=== PATIENT | male | born 1945 | race Caucasian/White ===

== ENCOUNTER 2021-05-20 15:55 | Inpatient (IN) | payer OTHER, SELFPAY ==
--- NOTE | ~2021-05-20 | MR_ITS ---
MRI OF THE BRAIN WITHOUT IV CONTRAST INDICATION: Right parietal infarcts. COMPARISON: CTA head and neck 05/20/2021. TECHNIQUE: Multiplanar multisequence MR imaging of the brain was obtained without IV contrast. FINDINGS: There are multiple small acute embolic infarcts within the right cerebellum, the occipital lobes bilaterally, the parietal lobes bilaterally, and the right greater than left frontal lobe. There is no significant mass effect and there is no hemorrhagic transformation. There is background chronic microangiopathy. There is no hydrocephalus, extra-axial surface collection, or herniation. The major flow voids at the skull base are preserved. The midline structures are normal. The cerebellar tonsils are normally positioned. The cerebellum and brainstem are normal. The craniocervical junction is normal. Osseous marrow signal intensity is homogenous. The visualized soft tissues are unremarkable. MR/MR head/brain wo con IMPRESSION: There are multiple small acute embolic infarcts within the right cerebellum, the occipital lobes bilaterally, the parietal lobes bilaterally, and the right greater than left frontal lobe. There is no significant mass effect and there is no hemorrhagic transformation.
--- NOTE | ~2021-05-20 | CT_ITS ---
CT ANGIOGRAM NECK WITH CONTRAST CT ANGIOGRAM BRAIN WITH CONTRAST CLINICAL INFORMATION: Left arm tingling. COMPARISON: Neck CT 06/13/2020. TECHNIQUE: Test bolus sequences followed by intravenous administration 70 mL of Omnipaque 350. Helical imaging was performed in the axial plane from the thoracic inlet to the skull vertex. Delayed postcontrast imaging of the head was also performed. The data was processed at the wood technologist workstation for generation of MIP sequences. Angled MIPs and volume rendered reformatted images were also generated at an offline 3D workstation under concurrent supervision. Stenoses are assessed in accordance with NASCET criteria unless otherwise indicated. This CT examination was performed using dose optimization techniques as appropriate, variously including the following: *Automated exposure control *Adjustment of mA and/or kV according to patient size (this includes techniques or standardized protocols for targeted exams where dose is matched to indication/reason for exam; i.e. extremities or head) *Use of iterative reconstruction technique FINDINGS: BRAIN: There is moderate chronic microangiopathy. [There is a possible small acute to subacute infarct involving the right superior parietal lobule partially inclusive of the right postcentral gyrus best seen on image 23 of series 16 that would map to the left upper extremity sensory strip. There is an additional possible small infarct more inferiorly within the inferior right parietal lobe more posteriorly on image 28 of series 16. MRI would be more sensitive in evaluation. There is no intracranial hemorrhage, hydrocephalus, extra-axial surface collection, midline shift, or other herniation pattern. The basilar cisterns are preserved. No significant soft tissue abnormality. No acute osseous abnormality. The paranasal sinuses and the mastoid air cells are well aerated.] CERVICAL SOFT TISSUES AND LUNG APICES: There is multilevel cervical spondylosis. Imaged upper lungs are clear. NECK CTA: [There is a classic 3 vessel configuration of the aortic arch. Proximal arch vessels are non-stenotic. Left vertebral artery is dominant. No significant ostial stenosis is visualized on either side. Both vertebral arteries are widely patent throughout their extracranial cervical course. 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 No focal flow-limiting stenosis nor discrete proximal large artery occlusion. No aneurysm. Timing of the contrast bolus allows assessment of the major dural venous sinuses, which all opacify normally] CT/CT angio head neck IMPRESSION: - There is a possible small acute to subacute infarct involving the right superior parietal lobule partially inclusive of the right postcentral gyrus best seen on image 23 of series 16 that would map to the left upper extremity sensory strip. There is an additional possible small infarct more inferiorly within the inferior right parietal lobe more posteriorly on image 28 of series 16. MRI would be more sensitive in evaluation. - There is moderate chronic microangiopathy. - No acute arterial occlusions and no significant arterial stenoses within the head or neck. 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 Findings discussed with Franca MOORE at 6:57 PM on 05/20/2021.
--- NOTE | 2021-05-20 16:08 | ECG_ITS ---
Test Reason : WEANESS /TINGLE L ARM Blood Pressure : / mmHG Vent. Rate : 067 BPM Atrial Rate : 067 BPM P-R Int : 174 ms QRS Dur : 096 ms QT Int : 392 ms P-R-T Axes : 029 -01 020 degrees QTc Int : 414 ms Normal sinus rhythm Normal ECG No previous ECGs available Referred By: Franca Zambrano Electronically Signed By:LILY PULLIAM
--- NOTE | 2021-05-20 16:10 | ED.NEUROSD ---
HPI - Neuro Symptoms/Deficit General Chief Complaint: General Medical Stated Complaint: L ARM NUMB/TINGLINGLING,H/O RADIATION FOR CA Time Seen by Provider: 05/20/21 16:08 Source: patient and EMS Mode of arrival: EMS Limitations: no limitations History of Present Illness HPI Narrative: 76-year-old male presents via EMS for numbness and tingling down the left arm that started at 10:30 this morning. He reports history of throat cancer and lymphedema. Onset (ago): hour(s) (6 hours ago) Time: 16:00 Last Observed Normal: 10:30 Location: left face and left arm History of same: No Severity: mild Quality: numb and tingling Relieving factors: none Exacerbating factors: none Context: sudden onset On Anticoagulants: No Associated symptoms: denies other symptoms Treatments Prior to Arrival: none Related Data Home Medications Medication Instructions Recorded Confirmed atorvastatin 10 mg tablet 10 mg PO DAILY 05/20/21 05/20/21 fluticasone propionate 50 2 spray INTRANASAL DAILY 05/20/21 05/20/21 mcg/actuation nasal spray,suspension tamsulosin 0.4 mg capsule 0.4 mg PO BEDTIME 05/20/21 05/20/21 Allergies Allergy/AdvReac Type Severity Reaction Status Date / Time No Known Allergies Allergy Unverified 11/10/19 14:34 Review of Systems Review of Systems: Constitutional: No Fever, No Chills ENT/Mouth: No Ear Pain, No Hoarseness, No sore throat Eyes: No Eye Pain, No Swelling, No Redness, No Foreign Body Cardiovascular: No Chest Pain, No SOB Respiratory: No Cough, No Dyspnea Gastrointestinal: No Nausea, No Vomiting, No Diarrhea, No abdominal Pain Genitourinary: No Dysuria, No Hematuria Musculoskeletal: No joint pain, No Myalgias, No Joint Swelling Skin: No Skin lacerations, No rash Neuro: No Weakness, positive left facial and arm Numbness, positive left facial and arm Paresthesias, No Loss of Consciousness, No Dizziness, No Headache Psych: No Anxiety/Panic, No Depression Heme/Lymph: no easy bruising, no Lymphadenopathy Endocrine: No Polyuria, No Polydipsia Yes all other systems are reviewed and are negative [facility] [place] Past Medical History Attestation statement: The following information was validated with the patient. Source: old records reviewed Social History Social History Alcohol intake: current Alcohol intake frequency: other Alcohol type: beer and wine Patient Tobacco Use Status: Former Tobacco user Smoked in Last 30 Days: No Use of substances other than those prescribed or required for medical reasons: No Any prior treatment program specific to substance use: No Advance Directives: No Advance Directives Information Provided: No Physical Exam Vital Signs: Vital Signs: Last Vital Signs Temp 98.6 F 05/20/21 19:07 Pulse 80 05/20/21 19:07 Resp 16 05/20/21 19:07 BP 176/99 H 05/20/21 19:07 Pulse Ox 97 05/20/21 19:07 BMI result Body Mass Index 24.0 Appearance: Alert. Oriented X3. No acute distress. Anxious. Eyes: Pupils equal, round and reactive to light. ENT: Pharynx normal. Neck: Normal inspection. Neck supple. CVS: Normal heart rate and rhythm. Pulses normal. Respiratory: No respiratory distress. Breath sounds normal. Abdomen: Soft and nontender. Skin: Skin warm and dry. Normal skin color. Normal skin turgor. Extremities: No lower extremity edema. Moves all extremities against resistance. Neuro: No motor deficit. No sensory deficit. Cranial nerves 2-12 intact. Course Course Course Narrative: 76-year-old male presents with chronic left-sided facial numbness and new onset of left arm numbness that started about 10 30 this morning. States that he had surgery for throat cancer and has had lymphedema since September 2020. The facial numbness the left side has been present since the lymphedema. At this time he does not report any other symptoms other than dizziness and the paresthesia and numbness to the left side of his face and arm. Will order CTA of head and neck. Patient is outside the tPA window. NIH Stroke Scale completed while patient was on the EMS stretcher. Patient does take aspirin 81 mg every morning. 1600 p.m. initial assessment NIH stroke scale 0. Last known well 10:30. 1647 EKG normal sinus. No ST depression or elevations. Vital signs are stable and within normal limits. 17:27 CBC within normal limits. Chemistries indicate elevated BUN at 21. Troponin negative. Will start resuscitating with fluid for elevated BUN. 18:56 discussion with Radiology regarding CTA results. Positive for infarct. No occlusion. MRI ordered at this time 19:43 discussion with hospitalist. Plan of care is to admit for infarct. Will call out to Neurology for consult. 19:[address] Bryan. Plan of care is aspirin 81 and admission. 21:38 MRI results discussed with hospitalist. Consultations Consultation #1: faustino Time: 19:43 Consultation #2: Irvin Time: 19:51 MDM - Neuro Symptoms/Deficit Differential Diagnosis Differential diagnosis: Likely subarachnoid hemorrhage, peripheral neuropathy, cerebrovascular accident and transient cerebral ischemia Medical Records Attestation: I reviewed the patient's medical records. Lab Data Attestation: I reviewed the patient's lab results. Result diagrams: 05/20/21 16:44 05/20/21 16:44 Labs: Lab Results 05/20/21 05/20/21 05/20/21 Range/Units 16:44 16:44 16:44 WBC 4.8 (4.8-10.8) X10*3/uL RBC 5.01 (4.60-5.80) X10*6/uL Hgb 14.7 (14.0-18.0) g/dl Hct 44.6 (42.0-52.0) % MCV 89.0 (80.0-98.0) fL MCH 29.3 (27.0-33.0) pg MCHC 33.0 (31.0-36.0) g/dl RDW 13.7 (11.0-16.0) % Plt Count 187 (160-400) X10*3/uL MPV 8.9 L (9.4-12.4) fL Immature Gran % (Auto) 0.2 (0.0-0.4) % Neut % (Auto) 76.4 H (45-73) % Lymph % (Auto) 14.7 L (20-40) % [place] % (Auto) 8.1 (2-11) % Eos % (Auto) 0.4 (0-4) % Baso % (Auto) 0.2 (0-2) % Lymph # (Auto) 0.7 L (1.2-4.9) X10*3/uL [place] # (Auto) 0.4 (0.1-1.2) X10*3/uL Eos # (Auto) 0.0 (0.0-0.4) X10*3/uL Baso # (Auto) 0.0 (0.0-0.2) X10*3/uL Abs Immat Gran (auto) 0.01 (0.00-0.03) X10*3/uL Absolute Neuts (auto) 3.7 (2.0-8.3) x10*3/uL Absolute Nucleated RBC 0.000 (0.0-0.012) X10*3/uL Nucleated RBC % (auto) 0.0 (0.0-0.2) /100WBC PT 11.8 (9.9-13.0) SEC INR 1.0 (0.9-1.1) APTT 29.8 (24.1-38.0) SEC Sodium 141 (135-145) mmol/L Potassium 4.0 (3.3-5.1) mmol/L Chloride 105 (96-108) mmol/L Carbon Dioxide 30 H (22-29) mmol/L Anion Gap 10 L (12-20) BUN 21 H (9-16) mg/dL Creatinine 0.77 (0.5-1.4) mg/dL Estim Creat Clear Calc 81.4 Estimated GFR > 60 Random Glucose 104 (60-115) mg/dL Lactic Acid (0.5-2.0) mmol/L Calcium 9.6 (8.4-10.2) mg/dL Magnesium 2.2 (1.6-2.6) mg/dL Total Bilirubin 0.6 (0.0-1.0) mg/dL Direct Bilirubin 0.3 (0.0-0.5) mg/dL AST 18 (5-37) U/L ALT 18 (0-40) U/L Alkaline Phosphatase 63 (39-117) U/L Troponin I High Sens (<3.5-35.0) ng/L Total Protein 6.4 L (6.5-8.0) g/dL Albumin 4.4 (3.5-5.0) g/dL Lipase 28 (8-78) U/L Urine Color Urine Appearance Urine pH (5.0-8.0) Ur Specific [place] (1.005-1.025) Urine Protein (NEG-TRACE) MG/DL Urine Glucose (UA) (NEG) MG/DL Urine Ketones (NEG) MG/DL Urine Blood (NEG) Urine Nitrite (NEG) Ur Leukocyte Esterase (NEG) 05/20/21 05/20/21 05/20/21 Range/Units 16:44 16:44 19:19 WBC (4.8-10.8) X10*3/uL RBC (4.60-5.80) X10*6/uL Hgb (14.0-18.0) g/dl Hct (42.0-52.0) % MCV (80.0-98.0) fL MCH (27.0-33.0) pg MCHC (31.0-36.0) g/dl RDW (11.0-16.0) % Plt Count (160-400) X10*3/uL MPV (9.4-12.4) fL Immature Gran % (Auto) (0.0-0.4) % Neut % (Auto) (45-73) % Lymph % (Auto) (20-40) % [place] % (Auto) (2-11) % Eos % (Auto) (0-4) % Baso % (Auto) (0-2) % Lymph # (Auto) (1.2-4.9) X10*3/uL [place] # (Auto) (0.1-1.2) X10*3/uL Eos # (Auto) (0.0-0.4) X10*3/uL Baso # (Auto) (0.0-0.2) X10*3/uL Abs Immat Gran (auto) (0.00-0.03) X10*3/uL Absolute Neuts (auto) (2.0-8.3) x10*3/uL Absolute Nucleated RBC (0.0-0.012) X10*3/uL Nucleated RBC % (auto) (0.0-0.2) /100WBC PT (9.9-13.0) SEC INR (0.9-1.1) APTT (24.1-38.0) SEC Sodium (135-145) mmol/L Potassium (3.3-5.1) mmol/L Chloride (96-108) mmol/L Carbon Dioxide (22-29) mmol/L Anion Gap (12-20) BUN (9-16) mg/dL Creatinine (0.5-1.4) mg/dL Estim Creat Clear Calc Estimated GFR Random Glucose (60-115) mg/dL Lactic Acid 1.0 (0.5-2.0) mmol/L Calcium (8.4-10.2) mg/dL Magnesium (1.6-2.6) mg/dL Total Bilirubin (0.0-1.0) mg/dL Direct Bilirubin (0.0-0.5) mg/dL AST (5-37) U/L ALT (0-40) U/L Alkaline Phosphatase (39-117) U/L Troponin I High Sens < 3.5 (<3.5-35.0) ng/L Total Protein (6.5-8.0) g/dL Albumin (3.5-5.0) g/dL Lipase (8-78) U/L Urine Color YELLOW Urine Appearance CLEAR Urine pH 6.0 (5.0-8.0) Ur Specific [place] 1.010 (1.005-1.025) Urine Protein NEG (NEG-TRACE) MG/DL Urine Glucose (UA) NEG (NEG) MG/DL Urine Ketones NEG (NEG) MG/DL Urine Blood NEG (NEG) Urine Nitrite NEG (NEG) Ur Leukocyte Esterase NEG (NEG) Imaging Data CTA head neck: Attestation: I personally reviewed and interpreted this imaging study as follows: Radiologist's impression: CT ANGIOGRAM NECK WITH CONTRAST CT ANGIOGRAM BRAIN WITH CONTRAST CLINICAL INFORMATION: Left arm tingling.? COMPARISON: Neck CT 06/13/2020. TECHNIQUE: Test bolus sequences followed by intravenous administration 70 mL of Omnipaque 350. Helical imaging was performed in the axial plane from the thoracic inlet to the skull vertex. Delayed postcontrast imaging of the head was also performed. The data was processed at the radiology technologist workstation for generation of MIP sequences. Angled MIPs and volume rendered reformatted images were also generated at an offline 3D workstation under concurrent supervision. Stenoses are assessed in accordance with NASCET criteria unless otherwise indicated. This CT examination was performed using dose optimization techniques as appropriate, variously including the following: *Automated exposure control *Adjustment of mA and/or kV according to patient size (this includes techniques or standardized protocols for targeted exams where dose is matched to indication/reason for exam; i.e. extremities or head) *Use of iterative reconstruction technique FINDINGS: BRAIN: There is moderate chronic microangiopathy. [There is a possible small acute to subacute infarct involving the right superior parietal lobule partially inclusive of the right postcentral gyrus best seen on image 23 of series 16 that would map to the left upper extremity sensory strip. There is an additional possible small infarct more inferiorly within the inferior right parietal lobe more posteriorly on image 28 of series 16. MRI would be more sensitive in evaluation. There is no intracranial hemorrhage, hydrocephalus, extra-axial surface collection, midline shift, or other herniation pattern. The basilar cisterns are preserved. No significant soft tissue abnormality. No acute osseous abnormality. The paranasal sinuses and the mastoid air cells are well aerated.] CERVICAL SOFT TISSUES AND LUNG APICES: There is multilevel cervical spondylosis. Imaged upper lungs are clear. NECK CTA: [There is a classic 3 vessel configuration of the aortic arch. Proximal arch vessels are non-stenotic. Left vertebral artery is dominant. No significant ostial stenosis is visualized on either side. Both vertebral arteries are widely patent throughout their extracranial cervical course. 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 No focal flow-limiting stenosis nor discrete proximal large artery occlusion. No aneurysm. Timing of the contrast bolus allows assessment of the major dural venous sinuses, which all opacify normally] CT/CT angio head neck IMPRESSION: - There is a possible small acute to subacute infarct involving the right superior parietal lobule partially inclusive of the right postcentral gyrus best seen on image 23 of series 16 that would map to the left upper extremity sensory strip. There is an additional possible small infarct more inferiorly within the inferior right parietal lobe more posteriorly on image 28 of series 16. MRI would be more sensitive in evaluation. ? - There is moderate chronic microangiopathy. ? - No acute arterial occlusions and no significant arterial stenoses within the head or neck. 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 ? Findings discussed with Franca MOORE at 6:57 PM on 05/20/2021. MRI - head: Attestation: I personally reviewed and interpreted this imaging study as follows: Radiologist's impression: MRI OF THE BRAIN WITHOUT IV CONTRAST INDICATION: Right parietal infarcts. COMPARISON: CTA head and neck 05/20/2021. TECHNIQUE: Multiplanar multisequence MR imaging of the brain was obtained without IV contrast. FINDINGS: There are multiple small acute embolic infarcts within the right cerebellum, the occipital lobes bilaterally, the parietal lobes bilaterally, and the right greater than left frontal lobe. There is no significant mass effect and there is no hemorrhagic transformation. There is background chronic microangiopathy. There is no hydrocephalus, extra-axial surface collection, or herniation. The major flow voids at the skull base are preserved. The midline structures are normal. The cerebellar tonsils are normally positioned. The cerebellum and brainstem are normal. The craniocervical junction is normal. Osseous marrow signal intensity is homogenous. The visualized soft tissues are unremarkable. MR/MR head/brain wo con IMPRESSION: There are multiple small acute embolic infarcts within the right cerebellum, the occipital lobes bilaterally, the parietal lobes bilaterally, and the right greater than left frontal lobe. There is no significant mass effect and there is no hemorrhagic transformation. ECG Data Attestation: I personally reviewed and interpreted this ECG as follows: ECG interpretation date: 05/20/21 ECG interpretation time: 16:47 Prior ECG tracings: not available for review Interpretation: Vent. rate 67 BPM CO interval 174 ms QRS duration 96 ms QT/QTc 392/414 ms P-R-T axes 29 -1 20 Normal sinus rhythm Normal ECG No previous ECGs available NIH Stroke Scale Internal: Initial- Upon Arrival Time: 16:00 Level of Consciousness: Alert Level of Consciousness Questions: Answers both questions correctly Level of Consciousness Commands: Performs both tasks correctly Best Gaze: Normal Visual: No visual loss Facial Palsy: Normal Motor Arm (Right): No drift Motor Arm (Left): No drift Motor Leg (Right): No drift Motor Leg (Left): No drift Limb Ataxia: Absent Sensory: Normal Best Language: No aphasia Dysarthia: Normal Extinction and Inattention: No abnormality Score: 0 Discharge Plan 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
[2021-05-20 16:23] VITALS: BP 126/76; PULSE 72; RESP 18; TEMP 36.4; O2SAT 95
[2021-05-20 16:37] VITALS: BP 156/90; PULSE 80; O2SAT 97; BMI 24.0
[2021-05-20 16:49] LABS: MANUAL DIFF FLAG NO
[2021-05-20 16:57] LABS: Basophils Percent Auto 0.2 % (0-2); Eosinophils Percent Auto 0.4 % (0-4); Hematocrit 44.6 % (42.0-52.0); Hemoglobin 14.7 g/dl (14.0-18.0); Imm Gran Abs Auto 0.01 X10*3/uL (0.00-0.03); Imm Gran Pct Auto 0.2 % (0.0-0.4); Lymphocytes Absolute Auto 0.7 X10*3/uL (1.2-4.9); Lymphocytes Percent Auto 14.7 % (20-40); Mean Corpuscular Hemoglobin 29.3 pg (27.0-33.0); Mean Platelet Volume 8.9 fL (9.4-12.4); Monocytes Absolute Auto 0.4 X10*3/uL (0.1-1.2); Monocytes Percent Auto 8.1 % (2-11); Neutrophils Absolute Auto 3.7 x10*3/uL (2.0-8.3); Neutrophils Percent Auto 76.4 % (45-73); Platelet Count 187 X10*3/uL (160-400); Red Blood Count 5.01 X10*6/uL (4.60-5.80); Red Cell Distribution Width 13.7 % (11.0-16.0); White Blood Count 4.8 X10*3/uL (4.8-10.8)
[2021-05-20 17:04] LABS: Prothrombin Time 11.8 SEC (9.9-13.0)
[2021-05-20 17:07] LABS: Partial Thromboplastin Time 29.8 SEC (24.1-38.0)
[2021-05-20 17:13] LABS: Alanine Aminotransferase 18 U/L (0-40); Albumin Level 4.4 g/dL (3.5-5.0); Alkaline Phosphatase 63 U/L (39-117); Anion Gap 10 (12-20); Aspartate Amino Transferase 18 U/L (5-37); Bilirubin Direct 0.3 mg/dL (0.0-0.5); Bilirubin Total 0.6 mg/dL (0.0-1.0); Blood Urea Nitrogen 21 mg/dL (9-16); Calcium 9.6 mg/dL (8.4-10.2); Carbon Dioxide 30 mmol/L (22-29); Chloride 105 mmol/L (96-108); Creatinine Clr Calc Pharmacy 81.4; Estimated Glomerular Filt Rate > 60; Glucose Random 104 mg/dL (60-115); Lipase 28 U/L (8-78); Magnesium 2.2 mg/dL (1.6-2.6); Sodium 141 mmol/L (135-145); Total Protein 6.4 g/dL (6.5-8.0)
[2021-05-20 17:20] LABS: Troponin-I High Sensitivity < 3.5 ng/L (<3.5-35.0)
[2021-05-20] MEDS: iohexoL 350 MG/ML 100 ML INFUS..BTL IV (18:23)
[2021-05-20] MEDS: 0.9 % Sodium Chloride 1,000 ML 999 ML IVCONT (18:32)
[2021-05-20 19:07] VITALS: BP 176/99; PULSE 80; RESP 16; TEMP 37; O2SAT 97
--- NOTE | 2021-05-20 19:13 | PC.NURSE ---
pt is alert and oriented x3 soliz. left chest numbness, upper arm elbow tingling like when your funny bone is stuck, per pt. pt finger to nose is slow.
[2021-05-20 19:24] LABS: Appearance Urine CLEAR; Color Urine YELLOW; Glucose Urine UA NEG (NEG); Leukocyte Esterase Urine NEG (NEG); Nitrite Urine NEG (NEG); Urine Blood NEG (NEG); Urine Ketones NEG (NEG); Urine Protein NEG (NEG-TRACE)
--- NOTE | 2021-05-20 20:03 | PC.NURSE ---
pt taken to mri, raz at bedside with family members giving a update on pt status. all questions answered, pt denies pain. alert oriented x3 follows commands. skin pink warm and dry.
[2021-05-20] MEDS: Aspirin 81 MG TAB.CHEW PO (20:57)
--- NOTE | 2021-05-20 21:51 | PHA.MEDREC ---
MED REC COMPLETE, NO ISSUES Pharmacy Consult ? Medication Reconciliation Pharmacy has completed the medication reconciliation.
[2021-05-20 22:15] VITALS: BP 148/85; PULSE 61; RESP 16; O2SAT 97
--- NOTE | 2021-05-20 22:22 | P.HPHOSP_ITS ---
History of Present Illness Date of Service: 05/20/21 Chief Complaint: left upper extremity numbness and tingling 76-year-old male with a past medical history of hypertension, hyperlipidemia, BPH, history of throat cancer status post surgery/radiotherapy with resultant lymphedema/lymphadenopathy; dysphagia; presented to the hospital today with a chief complaint of left arm numbness and tingling. Patient reported that this morning he noted to have mild left arm numbness and tingling, not feeling well; denies any weakness, falls. Denies any headaches, blurry visions, lightheadedness or dizziness. Also spoke to the patient's family at bedside who mentioned that patient was mentioning he was not feeling right yesterday and this morning he went to the work and where he had developed symptoms of left upper extremity numbness and tingling subsequently came home. Around 04:30 he had numbness and tingling which are prominent left upper extremity; immediately call the ambulance and came to the ER for further evaluation. At the time of my interview patient reported that he still has mild numbness in the left arm. Also mentions that he had difficulty grabbing the cup at work today. Denies any fever chills cough. Patient mentioned that he has mild lymphedema his throat and face; initially attributed his symptoms to the lymphedema. Patient also reports that he has difficulty swallowing post surgery; has been able to manage soft diet. Denies any GI symptoms. Review of all other systems is negative except mentioned above ER course: Per ER team patient noted to have slightly decreased sensation on the left upper extremity; last well-known time was 10:30 in the morning. Patient out of window for tPA. MRI brain. 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 Spoke to Dr. Bryan from Neurology who suggested to continue aspirin 81 mg. Patient had MRI brain which showed multiple embolic stroke involving cerebellum. Admitted for further management. [facility] Social History Alcohol intake: current Alcohol intake frequency: other Alcohol type: beer and wine Patient Tobacco Use Status: Former Tobacco user Smoked in Last 30 Days: No Use of substances other than those prescribed or required for medical reasons: No Any prior treatment program specific to substance use: No Advance Directives: No Advance Directives Information Provided: No Meds Allergies Allergy/AdvReac Type Severity Reaction Status Date / Time No Known Allergies Allergy Unverified 11/10/19 14:34 Active Medications: Current Medications Acetaminophen (Acetaminophen 325 Mg Tablet) 650 mg PO Q6H PRN PRN Reason: Pain, Mild (Pain Scale 1-3) Aspirin (Aspirin Enteric Coated 81 Mg Tablet.) 81 mg PO DAILY [facility] Atorvastatin Calcium (Atorvastatin Calcium 80 Mg Tablet) 80 mg PO DAILY [facility] Melatonin (Melatonin 3 Mg Tablet) 6 mg PO BEDTIME PRN PRN Reason: Insomnia Senna (Sennosides 8.6 Mg Tablet) 17.2 mg PO BEDTIME PRN PRN Reason: Constipation Sodium Chloride (0.9 % Sodium Chloride Flush 3 Ml Syringe) 3 ml IVFLUSH QSHIFT [facility] Home Medications Medication Instructions Recorded Confirmed Last Taken Type atorvastatin 10 mg tablet 10 mg PO DAILY 05/20/21 05/20/21 05/20/21 History cholecalciferol (vitamin D3) 25 25 mcg PO DAILY 05/20/21 05/20/21 Unknown History mcg (1,000 unit) tablet enalapril maleate 10 mg tablet 10 mg PO DAILY 05/20/21 05/20/21 05/20/21 History finasteride 5 mg tablet 5 mg PO DAILY 05/20/21 05/20/21 05/20/21 History fluticasone propionate 50 2 spray INTRANASAL DAILY 05/20/21 05/20/21 Unknown History mcg/actuation nasal spray,suspension polyethylene glycol 3350 17 17 g PO DAILY 05/20/21 05/20/21 05/20/21 History gram/dose oral powder (Miralax) tamsulosin 0.4 mg capsule 0.4 mg PO BEDTIME 05/20/21 05/20/21 05/19/21 History Physical Exam Vital Signs and Narrative: Vital Signs: Last Vital Signs Temp 98.6 F 05/20/21 19:07 Pulse 80 05/20/21 19:07 Resp 16 05/20/21 19:07 BP 176/99 H 05/20/21 19:07 Pulse Ox 97 05/20/21 19:07 BMI result Body Mass Index 24.0 Gen: Appears be in no acute distress HEENT: NCAT, Moist mucosa. Pulmonary: Vesicular breath sounds, fair air entry CVS: Normal S1-S2 Abdomen: BS+, Soft, Nontender Extremities: Warm well perfused Neuro: Alert and awake. oriented x3; strength 5/5 in upper and lower extremities; sensation slightly decreased on the left upper extremity - especially on the left arm and lateral side of the left chest to soft touch; Facial sensations are equal bilaterally; tongue is deviated to the left -chronic as per the patient and family; speech is clear; no pronator drift Results Labs CBC and Chem 7: 05/20/21 16:44 05/20/21 16:44 Labs: Laboratory Results - last 24 hr 05/20/21 05/20/21 05/20/21 16:44 16:44 16:44 MCV 89.0 MCH 29.3 MCHC 33.0 RDW 13.7 Plt Count 187 MPV 8.9 L Immature Gran % (Auto) 0.2 Neut % (Auto) 76.4 H Lymph % (Auto) 14.7 L Douglas % (Auto) 8.1 Eos % (Auto) 0.4 Baso % (Auto) 0.2 Lymph # (Auto) 0.7 L Douglas # (Auto) 0.4 Eos # (Auto) 0.0 Baso # (Auto) 0.0 Abs Immat Gran (auto) 0.01 Absolute Neuts (auto) 3.7 Absolute Nucleated RBC 0.000 Nucleated RBC % (auto) 0.0 PT 11.8 INR 1.0 APTT 29.8 Anion Gap 10 L Estim Creat Clear Calc 81.4 Estimated GFR > 60 Random Glucose 104 Lactic Acid Calcium 9.6 Magnesium 2.2 Total Bilirubin 0.6 Direct Bilirubin 0.3 AST 18 ALT 18 Alkaline Phosphatase 63 Total Protein 6.4 L Albumin 4.4 Lipase 28 Urine Color Urine Appearance Urine pH Ur Specific [place] Urine Protein Urine Glucose (UA) Urine Ketones Urine Blood Urine Nitrite Ur Leukocyte Esterase 05/20/21 05/20/21 16:44 19:19 MCV MCH MCHC RDW Plt Count MPV Immature Gran % (Auto) Neut % (Auto) Lymph % (Auto) Douglas % (Auto) Eos % (Auto) Baso % (Auto) Lymph # (Auto) Douglas # (Auto) Eos # (Auto) Baso # (Auto) Abs Immat Gran (auto) Absolute Neuts (auto) Absolute Nucleated RBC Nucleated RBC % (auto) PT INR APTT Anion Gap Estim Creat Clear Calc Estimated GFR Random Glucose Lactic Acid 1.0 Calcium Magnesium Total Bilirubin Direct Bilirubin AST ALT Alkaline Phosphatase Total Protein Albumin Lipase Urine Color YELLOW Urine Appearance CLEAR Urine pH 6.0 Ur Specific [place] 1.010 Urine Protein NEG Urine Glucose (UA) NEG Urine Ketones NEG Urine Blood NEG Urine Nitrite NEG Ur Leukocyte Esterase NEG Imaging Radiologist's Impressions: Impressions Head/Neck CTA 05/20/21 18:30 IMPRESSION: - There is a possible small acute to subacute infarct involving the right superior parietal lobule partially inclusive of the right postcentral gyrus best seen on image 23 of series 16 that would map to the left upper extremity sensory strip. There is an additional possible small infarct more inferiorly within the inferior right parietal lobe more posteriorly on image 28 of series 16. MRI would be more sensitive in evaluation. - There is moderate chronic microangiopathy. - No acute arterial occlusions and no significant arterial stenoses within the head or neck. 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 Findings discussed with Franca MOORE at 6:57 PM on 05/20/2021. Brain MRI 05/20/21 20:45 IMPRESSION: There are multiple small acute embolic infarcts within the right cerebellum, the occipital lobes bilaterally, the parietal lobes bilaterally, and the right greater than left frontal lobe. There is no significant mass effect and there is no hemorrhagic transformation. Assessment and Plan (1) Infarction of parietal lobe: Status: Acute Plan 76-year-old male with a past medical history of hypertension, hyperlipidemia, BPH, history of throat cancer status post surgery/radiotherapy with resultant lymphedema/lymphadenopathy; dysphagia; presented to the hospital today with a chief complaint of left arm numbness and tingling. CVA: Presented with left arm numbness and tingling. CT head/CT angio head and neck showed:small acute to subacute infarct involving the right superior parietal lobule partially inclusive of the rightpostcentral gyrus woul map tothe left upper extremity sensory strip. There is an additional small infarct more inferiorly within the inferior right parietal lobe; There is moderate chronic microangiopathy.; - No acute arterial occlusions and no significant arterial stenoses within the head or neck. 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 MRI brain showed ?multiple small acute embolic infarcts within the right cerebellum, the occipital lobes bilaterally, the parietal lobes bilaterally, and the right greater than left frontal lobe. There is no significant mass effect and there is no hemorrhagic transformation. Speech and swallow eval/PT/ OT Echo with bubble study Telemetry Cycle cardiac enzymes Neurology consult is made aware of the patient, recommended to continue aspirin 81mg. Will increase the home Lipitor to 80 mg. Hypertension: Patient's blood pressure currently on the higher side. Hold home antihypertensives for now. Permissive hypertension. History of throat cancer status post surgery/radiotherapy: Patient has baseline swallowing difficulties but able to manage soft food. Speech and swallow eval. DVT prophylaxis: SCD boots Code status: Full code. Confirmed with the patient and patient's family at bedside Quality Stroke Does the patient have a stroke diagnosis?: No VTE Prior VTE?: No VTE Risk Level:: Medical - moderate - high VTE Device Contraindication: N/A - Device Ordered VTE Drug Contraindication: Treatment Not Indicated
[2021-05-20 22:48] VITALS: BP 155/80; PULSE 79; RESP 16
[2021-05-20 23:24] LABS: Troponin-I High Sensitivity 4.9 ng/L (<3.5-35.0)
[2021-05-21 02:18] VITALS: BP 145/81; PULSE 61; RESP 16; TEMP 36.8; O2SAT 94
[2021-05-21 03:19] LABS: COVID-19 Test Negative (Negative)
[2021-05-21 06:20] VITALS: BP 146/80; PULSE 59; RESP 16; O2SAT 95
--- NOTE | 2021-05-21 07:07 | PC.NURSE ---
care assumed for this pt, lab at bedside for blood draw. pt engaging in conversation and very pleasant. aware of plan of care and denied having any questions.
--- NOTE | 2021-05-21 07:14 | PC.NURSE ---
care assumed for pt at this time. resp even and unlabored- sleeping in bed. vss. plan for admission to hospital and awaiting bed.
--- NOTE | 2021-05-21 07:20 | CA_ITS ---
Transthoracic Echocardiogram Patient (Last, First, Middle): Howie OdellTimbo Gender: Male Date of : 1945 Age: 76 Procedure Date: 05/21/2021 Procedure Type: Transthoracic Echocardiogram Location: ER Height: 172.72 cm Weight: 71.67 kg BSA: 1.85 m2 Heart Rate: bpm BP: 146 / 80 mmHg Clinical Rehabilitation Aide: GLADYS Referring MD: Donnie Lobato MD Symptoms: CVA Study Quality: Fair ECG Rhythm: Sinus Conclusions: - The left ventricular systolic function is normal. The calculated ejection fraction is 62% by biplane method. - No obvious valvular pathology seen on this study. Findings Left Ventricle Normal left ventricular cavity size. There is normal left ventricular wall thickness. The left ventricular systolic function is normal. The calculated ejection fraction is 62% by biplane method. There is no evidence of regional wall motion abnormalities. Diastolic function is normal for age. Right Ventricle Normal right ventricular cavity size and systolic function. Atria Both atria are normal in size. Aortic Valve There is a normal trileaflet aortic valve. There is no aortic valve stenosis. There is no aortic valve regurgitation. Mitral Valve The mitral valve appears normal. There is trace mitral valve regurgitation. There is no mitral valve stenosis. Pulmonic Valve The pulmonic valve was not well visualized. Tricuspid Valve Normal tricuspid valve structure. There is trace tricuspid valve regurgitation. The pulmonary artery systolic pressure is normal. Great Vessels The aortic annulus, sinuses of valsalva, and asc aorta are normal in size. Venous The inferior vena cava is normal in size and collapses greater than 50% with inspiration. Pericardium/Pleural There is no evidence of pericardial effusion. Prior Study Comparison No prior study available for comparison. Recommendations, Care & Conclusions No obvious valvular pathology seen on this study. Measurements 2D Linear Measurements IVSd: 0.94 0.6-0.9/0.6-1.0 cm LVIDd: 5.21 3.9-5.3/4.2-5.9 cm LVIDd Index: 2.82 2.4-3.2/2.2-3.1 cm/m2 LVIDs: 3.43 2.0-3.6 cm LVPWd: 0.84 0.7-1.1 cm LA Diam: 3.60 2.7-3.8/3.0-4.0 cm LAIDs Index: 1.95 1.5-2.3 cm/m2 LV Mass: 208.27 67-162/88-224 g LV Mass Index: 112.58 43-95/49-115 g/m2 LVOT Diam: 2.30 3.0+(-)1.3 cm 2D Systolic Function EF 4C: 63.60 >55% EF 2C: 64.30 >55% EF BiP: 62.10 >55% Mitral Valve MV Pk E: 0.53 MV PK A: 0.83 MV Decel Time: 181.00 E/A: 0.60 E'Lateral: 9.46 E'Medial: 5.66 E/E' Med: 9.30 E/E' Lat: 5.60 PHT: 53.00 MVA PHT: 4.15 Decel Josephine: 2.91 Aortic Valve AoV Pk Paul: 1.24 AoV Mn Paul: 0.84 AoV VTI: 0.31 AoV Pk Grad: 6.00 Aov Mn Grad: 3.00 CRYS Cont.VTI: 2.53 LVOT LVOT Pk Paul: 0.80 LVOT Mn Paul: 0.55 LVOT VTI: 0.19 LVOT Pk Grad: 3.00 LVOT Mn Grad: 1.00 LVOT Diam: 2.30 LVOT Area: 4.15 Diastolic Function MV Pk E: 0.53 MV Pk A: 0.83 E/A: 0.60 E'Medial: 5.66 E/E' Med: 9.30 E' Laterial: 9.46 E/E' Lat: 5.60 Right Ventricle TAPSE (mm): 24.40 TVS' Paul: 11.90 Tricuspid Valve TR Pk Paul: 1.82 TR Pk Grad: 13.00 RA Press: 3.00 RVSP: 16.00 Great Vessels Aorta Sinus of Valsalva: 4.05 2.0-3.[address] [place]: 3.11 1.7-3.4 cm Ao Asc: 3.80 2.1-3.4 cm Ao Arch: 2.90 Updated in Other Vendor System with Status of Final Kole Huang MD electronically signed on 05/21/2021 11:57:34 AM with status of Final
[2021-05-21 07:36] LABS: Basophils Percent Auto 0.2 % (0-2); Eosinophils Absolute Auto 0.1 X10*3/uL (0.0-0.4); Eosinophils Percent Auto 1.2 % (0-4); Hematocrit 44.9 % (42.0-52.0); Imm Gran Abs Auto 0.01 X10*3/uL (0.00-0.03); Imm Gran Pct Auto 0.2 % (0.0-0.4); Lymphocytes Absolute Auto 0.7 X10*3/uL (1.2-4.9); Lymphocytes Percent Auto 17.5 % (20-40); MANUAL DIFF FLAG NO; Mean Corpuscular HGB Conc 33.4 g/dl (31.0-36.0); Mean Corpuscular Hemoglobin 29.8 pg (27.0-33.0); Mean Corpuscular Volume 89.3 fL (80.0-98.0); Mean Platelet Volume 8.8 fL (9.4-12.4); Monocytes Absolute Auto 0.3 X10*3/uL (0.1-1.2); Neutrophils Absolute Auto 3.1 x10*3/uL (2.0-8.3); Neutrophils Percent Auto 73.9 % (45-73); Platelet Count 145 X10*3/uL (160-400); Red Blood Count 5.03 X10*6/uL (4.60-5.80); Red Cell Distribution Width 13.6 % (11.0-16.0); White Blood Count 4.2 X10*3/uL (4.8-10.8)
[2021-05-21 07:43] LABS: Prothrombin Time 11.7 SEC (9.9-13.0)
[2021-05-21 07:54] VITALS: BP 146/87; PULSE 63; RESP 10; O2SAT 96
[2021-05-21] MEDS: Aspirin Enteric Coated 81 MG TABLET.DR PO (08:03)
[2021-05-21] MEDS: Atorvastatin Calcium 80 MG TABLET PO (08:03)
[2021-05-21] MEDS: Cholecalciferol (Vitamin D3) 25 MCG TABLET PO (08:03)
[2021-05-21] MEDS: 0.9 % Sodium Chloride Flush 3 ML SYRINGE IVFLUSH ×2 (08:03→23:55)
[2021-05-21] MEDS: Finasteride 5 MG TABLET PO (08:03)
[2021-05-21 08:10] LABS: Anion Gap 9 (12-20); Blood Urea Nitrogen 13 mg/dL (9-16); Calcium 9.3 mg/dL (8.4-10.2); Carbon Dioxide 27 mmol/L (22-29); Chloride 107 mmol/L (96-108); Cholesterol 152 mg/dL; Creatinine Clr Calc Pharmacy 83.6; Estimated Glomerular Filt Rate > 60; Glucose Random 115 mg/dL (60-115); HDL Cholesterol 67 mg/dL; LDL Cholesterol Calculated 71 mg/dl; Potassium 4.3 mmol/L (3.3-5.1); Sodium 139 mmol/L (135-145); Triglycerides 70 mg/dL
--- NOTE | 2021-05-21 08:28 | PC.NURSE ---
pt/ot at bedside
--- NOTE | 2021-05-21 10:55 | P.PNIM_ITS ---
Subjective Subjective Date of Service: 05/21/21 Interval History: the patient was seen and evaluated this morning Laying in bed, feels comfortable Reports sensation has improved in his left lower extremity Denies any fever, chills or shortness of breath No reported other overnight events. Systemic review: No fever, chills or weakness but reported decreased sensation in his left shoul mary No chest pain, palpitation No shortness of breath or coughing No abdominal pain, nausea or vomiting No urinary symptoms No any rash or wounds Physical Exam Vital Signs: Vital Signs: Last Vital Signs Temp 98.3 F 05/21/21 02:18 Pulse 63 05/21/21 07:54 Resp 10 L 05/21/21 07:54 BP 146/87 H 05/21/21 07:54 Pulse Ox 96 05/21/21 07:54 BMI result Body Mass Index 24.0 Const: Other: Constitutional : Alert, oriented, not in distress Neck : Normal inspection, Supple Cardiovascular : RRR, S1 S2, no lower extremity edema Respiratory : Good bilateral air entry, no crackles, wheezes or rhonchi Gastrointestinal: soft, lax, Normal bowel sounds, Non tender Skin : Warm, Dry Neurological : Alert & oriented x3, No focal deficit, CN II-XII within normal Objective Data Active Medications Acetaminophen (Acetaminophen 325 Mg Tablet) 650 mg PO Q6H PRN PRN Reason: Pain, Mild (Pain Scale 1-3) Aspirin (Aspirin Enteric Coated 81 Mg Tablet.) 81 mg PO DAILY [facility] Last Admin: 05/21/21 08:03 Dose: 81 mg Documented by: SHAWN Atorvastatin Calcium (Atorvastatin Calcium 80 Mg Tablet) 80 mg PO DAILY [facility] Last Admin: 05/21/21 08:03 Dose: 80 mg Documented by: SHAWN Finasteride (Finasteride 5 Mg Tablet) 5 mg PO DAILY [facility] Last Admin: 05/21/21 08:03 Dose: 5 mg Documented by: SHAWN Fluticasone Propionate (Fluticasone Propionate Nasal 16 Gm [place]) 2 spray NOSTRIL-B DAILY [facility] Last Admin: 05/21/21 08:03 Dose: Not Given Documented by: SHAWN Non-Admin Reason: Med Not Available Melatonin (Melatonin 3 Mg Tablet) 6 mg PO BEDTIME PRN PRN Reason: Insomnia Polyethylene Glycol (Polyethylene Glycol 3350 17 Gm Powd.Pack) 17 gm PO DAILY [facility] Last Admin: 05/21/21 08:03 Dose: Not Given Documented by: SHAWN Non-Admin Reason: Med Not Available Senna (Sennosides 8.6 Mg Tablet) 17.2 mg PO BEDTIME PRN PRN Reason: Constipation Sodium Chloride (0.9 % Sodium Chloride Flush 3 Ml Syringe) 3 ml IVFLUSH QSHIFT [facility] Last Admin: 05/21/21 08:03 Dose: 3 ml Documented by: SHAWN Tamsulosin HCl (Tamsulosin Hcl 0.4 Mg Capsule) 0.4 mg PO BEDTIME EILEEN Vitamin D (Cholecalciferol (Vitamin D3) 25 Mcg Tablet) 25 mcg PO DAILY [facility] Last Admin: 05/21/21 08:03 Dose: 25 mcg Documented by: SHAWN Labs CBC & Chem 7: 05/21/21 07:25 05/21/21 07:25 Labs: Laboratory Results - last 24 hr 05/20/21 05/20/21 05/20/21 16:44 16:44 16:44 MCV 89.0 MCH 29.3 MCHC 33.0 RDW 13.7 Plt Count 187 MPV 8.9 L Immature Gran % (Auto) 0.2 Neut % (Auto) 76.4 H Lymph % (Auto) 14.7 L [place] % (Auto) 8.1 Eos % (Auto) 0.4 Baso % (Auto) 0.2 Lymph # (Auto) 0.7 L [place] # (Auto) 0.4 Eos # (Auto) 0.0 Baso # (Auto) 0.0 Abs Immat Gran (auto) 0.01 Absolute Neuts (auto) 3.7 Absolute Nucleated RBC 0.000 Nucleated RBC % (auto) 0.0 PT 11.8 INR 1.0 APTT 29.8 Anion Gap 10 L Estim Creat Clear Calc 81.4 Estimated GFR > 60 Random Glucose 104 Lactic Acid Calcium 9.6 Magnesium 2.2 Total Bilirubin 0.6 Direct Bilirubin 0.3 AST 18 ALT 18 Alkaline Phosphatase 63 Troponin I High Sens Total Protein 6.4 L Albumin 4.4 Triglycerides Cholesterol LDL Cholesterol, Calc HDL Cholesterol Lipase 28 Urine Color Urine Appearance Urine pH Ur Specific [place] Urine Protein Urine Glucose (UA) Urine Ketones Urine Blood Urine Nitrite Ur Leukocyte Esterase COVID-19 ([facility]) COVID-19 Clin Com 05/20/21 05/20/21 05/20/21 16:44 16:44 19:19 MCV MCH MCHC RDW Plt Count MPV Immature Gran % (Auto) Neut % (Auto) Lymph % (Auto) [place] % (Auto) Eos % (Auto) Baso % (Auto) Lymph # (Auto) [place] # (Auto) Eos # (Auto) Baso # (Auto) Abs Immat Gran (auto) Absolute Neuts (auto) Absolute Nucleated RBC Nucleated RBC % (auto) PT INR APTT Anion Gap Estim Creat Clear Calc Estimated GFR Random Glucose Lactic Acid 1.0 Calcium Magnesium Total Bilirubin Direct Bilirubin AST ALT Alkaline Phosphatase Troponin I High Sens < 3.5 Total Protein Albumin Triglycerides Cholesterol LDL Cholesterol, Calc HDL Cholesterol Lipase Urine Color YELLOW Urine Appearance CLEAR Urine pH 6.0 Ur Specific [place] 1.010 Urine Protein NEG Urine Glucose (UA) NEG Urine Ketones NEG Urine Blood NEG Urine Nitrite NEG Ur Leukocyte Esterase NEG COVID-19 ([facility]) COVID-19 [facility] Com 05/20/21 05/21/21 05/21/21 23:00 02:58 07:25 MCV 89.3 MCH 29.8 MCHC 33.4 RDW 13.6 Plt Count 145 L MPV 8.8 L Immature Gran % (Auto) 0.2 Neut % (Auto) 73.9 H Lymph % (Auto) 17.5 L [place] % (Auto) 7.0 Eos % (Auto) 1.2 Baso % (Auto) 0.2 Lymph # (Auto) 0.7 L [place] # (Auto) 0.3 Eos # (Auto) 0.1 Baso # (Auto) 0.0 Abs Immat Gran (auto) 0.01 Absolute Neuts (auto) 3.1 Absolute Nucleated RBC 0.000 Nucleated RBC % (auto) 0.0 PT INR APTT Anion Gap Estim Creat Clear Calc Estimated GFR Random Glucose Lactic Acid Calcium Magnesium Total Bilirubin Direct Bilirubin AST ALT Alkaline Phosphatase Troponin I High Sens 4.9 Total Protein Albumin Triglycerides Cholesterol LDL Cholesterol, Calc HDL Cholesterol Lipase Urine Color Urine Appearance Urine pH Ur Specific [place] Urine Protein Urine Glucose (UA) Urine Ketones Urine Blood Urine Nitrite Ur Leukocyte Esterase COVID-19 ([facility]) Negative COVID-19 [facility] Com See Note 05/21/21 05/21/21 07:25 07:25 MCV MCH MCHC RDW Plt Count MPV Immature Gran % (Auto) Neut % (Auto) Lymph % (Auto) [place] % (Auto) Eos % (Auto) Baso % (Auto) Lymph # (Auto) [place] # (Auto) Eos # (Auto) Baso # (Auto) Abs Immat Gran (auto) Absolute Neuts (auto) Absolute Nucleated RBC Nucleated RBC % (auto) PT 11.7 INR 1.0 APTT Anion Gap 9 L Estim Creat Clear Calc 83.6 Estimated GFR > 60 Random Glucose 115 Lactic Acid Calcium 9.3 Magnesium Total Bilirubin Direct Bilirubin AST ALT Alkaline Phosphatase Troponin I High Sens Total Protein Albumin Triglycerides 70 Cholesterol 152 LDL Cholesterol, Calc 71 HDL Cholesterol 67 Lipase Urine Color Urine Appearance Urine pH Ur Specific [place] Urine Protein Urine Glucose (UA) Urine Ketones Urine Blood Urine Nitrite Ur Leukocyte Esterase COVID-19 ([facility]) COVID-19 Clin Com Assessment and Plan (1) Infarction of parietal lobe: Status: Acute (2) Acute embolic stroke: Status: Acute Plan 76-year-old male with a past medical history of hypertension, hyperlipidemia, BPH, history of throat cancer status post surgery/radiotherapy with resultant lymphedema/lymphadenopathy; dysphagia; presented to the hospital today with a chief complaint of left arm numbness and tingling. # acute stroke Presented with left arm numbness and tingling. Improving Seems to be in polyps giving multifocal appearance on MRI MRI showing multiple areas including parietal lobe superior and inferior along with right cerebellum, occipital lobes bilaterally. No carotid stenosis reported by CTA To do Speech and swallow eval/PT/ OT Regular Echo was done, to check with Cardiology we need to repeat with bubble study Monitor rhythm on Telemetry Neurology consult pending Continue aspirin 81mg and increase Lipitor to 80 mg To get cardiology consult Hypertension Patient's blood pressure currently on the higher side Hold home antihypertensives for now Permissive hypertension. History of throat cancer status post surgery/radiotherapy Patient has baseline swallowing difficulties but able to manage soft food [place] diet Speech and swallow eval. DVT prophylaxis: Lovenox Quality Stroke Does the patient have a stroke diagnosis?: No VTE Prior VTE?: No VTE Risk Level:: Medical - moderate - high VTE Device Contraindication: N/A - Device Ordered VTE Drug Contraindication: Treatment Not Indicated
--- NOTE | 2021-05-21 11:52 | PC.NURSE ---
patient reports seeing black dots when focusing on up close objects. daughter at bedside, requesting update on plan of care and wether or not neurology has seen patient. hospitalist page about patient/family concerns. patient in no obvious distress other eckert, denies any additional needs
[2021-05-21] MEDS: Enoxaparin Sodium 40 MG/0.4 ML SYRINGE SUBCUT (12:21)
--- NOTE | 2021-05-21 12:53 | MHC.CM.PN ---
Met with patient, Jennie, and daughter Rafaela in regards to discharge planning. Patient lives with Jennie, ambulates independently and had no services prior to coming to the hospital. PCP verified. New HCP completed, signed and witnessed. Original given to patient. Copy placed in chart. IMM explained and signed. Patient received 3 Pfizer vaccines. Family will transport patient home when medically stable. Continue to monitor for d/c needs.
--- NOTE | 2021-05-21 13:47 | MHC.STROKE ---
Addendum entered by Sadie Thomas RN 05/21/21 16:00: I ROUNDED AGAIN AFTER DR ZEPEDA, WE DISCUSSED WHAT DR ZEPEDA TOLD HIM. I ANSWERED ALL OF HIS QUESTIONS. HE MAY NEED BRANDI, HOLTER MONITOR OR LINQ IMPLANTABLE HEART MONITOR, HE MAY ALSO BENEFIT FROM A HYPERCOAG. WORK-UP. SEE DR ZEPEDA'S NOTE. Original Note: EMS PRE-NOTIFIED AT 1541, NO STROKE ALERT, ARRIVED AT 1555. C/O LEFT ARM TINGLING SINCE EARLY AM UPON WAKING AT 0630 THEN AGAIN 1030. 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 I REVIEWED THE MRI RESULTS WITH DR ZEPEDA. HE RECOMMENDED A CARDIOLOGY CONSULT. DR INGRAM AND I MET WITH THE PATIENT, HIS AND DAUGHTER TO REVIEW THE DIAGNOSIS AND PLAN OF CARE. I REVIEWED THE STROKE EDUCATION BOOKLET, POWER POINT SLIDES, AND MRI IMAGES AND DESCRIBED WHERE THE STROKE IS AND THE CORRELATING SYMPTOMS. THEY HAD SEVERAL QUESTIONS THAT I WAS ABLE TO ANSWER. MY NIHSS = 2 FOR A PARTIAL LEFT FIELD CUT AND SOME LEFT SENSORY DEFICIT. I WILL CONTINUE TO FOLLOW.
[2021-05-21] MEDS: Apixaban 5 MG TABLET PO ×2 (14:08→21:05)
--- NOTE | 2021-05-21 14:31 | MHC.SL.SWA ---
Speech Pathologist Impression: Risk of Aspiration Due to: Neurological Condition Dysphasia Diet Status: Liquid Consistency and Strategies for Safe Swallow: Liquid Intake Recommendation: Thin Liquid Intake Strategies: Small Sips Solid Food Consistency: Dietary Recommendations: Chopped/Advanced (NDD3) Additional Modifications to Solid Foods: Add thin gravies, sauces. Oral Medication Intake: Crushed with Puree Please contact the pharmacy regarding appropriate crushable or liquid drug formulations that are available whenever modified delivery is recommended. Compensatory Strategies and Precautions to be Taken for Safe Swallow: Sitting Upright (90 deg) Double Swallow Liquids from Cup Liquids from Straw Alternate Liquids/Solids Supervision While Eating and Drinking for Safe Swallow: Intermittent Supervision Foods to Avoid: Acidic foods, temp extremes (very hot/cold), sticky textures, foods that break into pieces when chewed (e.g. brittle/crunchy foods). Swallowing Recommended Treatments: Compens. Strategy Educat. Recommendation for Speech: Inpatient Speech Therapy Comment: Pt presents w/ oral phase dysphagia, secondary to s/p surgery/radiation for throat CA. Pt is highly aware of swallowing needs and is an excellent self-advocate. On assessment today, pt had prolonged oral phase due to mastication and transit of solid bolus, w/residual after swallow cleared with sips of liquid. Pt reports this is his baseline. Pt additionally reports that he is in treatment for dysphagia with [employer] at [facility], and had recent MBSS that had no indication of aspiration on any food/liquid consistency. Recommend diet of Chopped/Advanced (NDD3) w/ THIN liquids, Pills CRUSHED in PUREE (Pt reported difficulty swallowing large pills). w/ medication administration, Pt will likely need liquid wash to help clear any residual med/puree. Additionally Pt reports that he regularly supplements meals w/nutritional shakes. Recommendations for diet consistencies sent to MD, Risk Consultant by secure text. [employer] to follow up 1-2X for toleration of recommended diet. Frequency/Duration: Date Range for Service Req: Timeline to reassess: Concert Manager Clinican/Clinical Fellow: No Supervisory Statement: I have reviewed and agree with the student/clinical fellow's documentation: N/A Speech Language Pathologist: Dari Osborn M.A., [facility]
--- NOTE | 2021-05-21 14:31 | MHC.SLORD ---
Speech Language Pathology Order Status: Initial referral entered by MD for PT was for Speech/Lang/Cog eval, however on chart review evident that BSE was intended, and BSE completed this a.m. In working w/Pt, no evidence of Speech/lang/cognitive issues.
[2021-05-21] MEDS: Tamsulosin HCL 0.4 MG CAPSULE PO ×2 (14:53→21:05)
--- NOTE | 2021-05-21 17:25 | P.CNNE_ITS ---
History of Present Illness Data of Consult Service Date: 05/21/21 Primary Care Provider: Tomas Gold MD [facility] Reason for consult: Left hand tingling, Stroke This is a 76-year-old left handed man with a past medical history of hypertension, hyperlipidemia, BPH, history of left tonsillar cancer, status post surgery/radiotherapy with resultant lymphedema /lymphadenopathyin the neck; dysphagia; presented to the hospital today with a chief complaint of left arm and hand numbness and tingling. 05/20/21 morning he noted difficulty grabbing the cup at work and impaired fine motor skills followed a couple of hrs later with mild left arm numbness and tingling, not feeling well; denies any weakness, falls.? Denies any headaches, blurry visions, lightheadedness or dizziness.?At the time of my interview patient reported that he still has mild numbness in the left shoulder and upper arm but it had cleared from the forearm and hand.? Patient mentioned that he has mild lymphedema his throat and face; initially attributed his symptoms to the lymphedema.? Patient also reports that he has difficulty swallowing post surgery; has been able to manage soft diet.?He is using a pressure devic cande his chest an dneck to reduce lymphedema. Review of Systems Review of Systems: Constitutional: No Fever, No Chills ENT/Mouth: No Ear Pain, No Hoarseness, No sore throat Eyes: No Eye Pain, No Swelling, No Redness, No Foreign Body Cardiovascular: No Chest Pain, No SOB Respiratory: No Cough, No Dyspnea Gastrointestinal: No Nausea, No Vomiting, No Diarrhea, No abdominal Pain Genitourinary: No Dysuria, No Hematuria Musculoskeletal: No joint pain, No Myalgias, No Joint Swelling Skin: No Skin lacerations, No rash Neuro: No Weakness, positive left facial and arm Numbness, positive left facial and arm Paresthesias, No Loss of Consciousness, No Dizziness, No Headache Psych: No Anxiety/Panic, No Depression Heme/Lymph: no easy bruising, no Lymphadenopathy Endocrine: No Polyuria, No Polydipsia Yes all other systems are reviewed and are negative COUNTS INCLUDE 234 BEDS AT THE [facility] Social History Social History Alcohol intake: current Alcohol intake frequency: other Alcohol type: beer and wine Patient Tobacco Use Status: Former Tobacco user service: No Current occupational status: employed Meds Allergies Allergy/AdvReac Type Severity Reaction Status Date / Time No Known Allergies Allergy Unverified 11/10/19 14:34 Active Medications: Current Medications Acetaminophen (Acetaminophen 325 Mg Tablet) 650 mg PO Q6H PRN PRN Reason: Pain, Mild (Pain Scale 1-3) Apixaban (Apixaban 5 Mg Tablet) 5 mg PO BID [facility] Last Admin: 05/21/21 14:08 Dose: 5 mg Documented by: Atorvastatin Calcium (Atorvastatin Calcium 80 Mg Tablet) 80 mg PO DAILY [facility] Last Admin: 05/21/21 08:03 Dose: 80 mg Documented by: Finasteride (Finasteride 5 Mg Tablet) 5 mg PO DAILY [facility] Last Admin: 05/21/21 08:03 Dose: 5 mg Documented by: Fluticasone Propionate (Fluticasone Propionate Nasal 16 Gm [place]) 2 spray NOSTRIL-B DAILY [facility] Last Admin: 05/21/21 08:03 Dose: Not Given Documented by: Melatonin (Melatonin 3 Mg Tablet) 6 mg PO BEDTIME PRN PRN Reason: Insomnia Polyethylene Glycol (Polyethylene Glycol 3350 17 Gm Powd.Pack) 17 gm PO DAILY [facility] Last Admin: 05/21/21 08:03 Dose: Not Given Documented by: Senna (Sennosides 8.6 Mg Tablet) 17.2 mg PO BEDTIME PRN PRN Reason: Constipation Sodium Chloride (0.9 % Sodium Chloride Flush 3 Ml Syringe) 3 ml IVFLUSH QSHIFT [facility] Last Admin: 05/21/21 08:03 Dose: 3 ml Documented by: Tamsulosin HCl (Tamsulosin Hcl 0.4 Mg Capsule) 0.4 mg PO BEDTIME [facility] Last Admin: 05/21/21 14:53 Dose: 0.4 mg Documented by: Vitamin D (Cholecalciferol (Vitamin D3) 25 Mcg Tablet) 25 mcg PO DAILY [facility] Last Admin: 05/21/21 08:03 Dose: 25 mcg Documented by: Home Medications Medication Instructions Recorded Confirmed Last Taken Type atorvastatin 10 mg tablet 10 mg PO DAILY 05/20/21 05/20/21 05/20/21 History cholecalciferol (vitamin D3) 25 25 mcg PO DAILY 05/20/21 05/20/21 Unknown History mcg (1,000 unit) tablet enalapril maleate 10 mg tablet 10 mg PO DAILY 05/20/21 05/20/21 05/20/21 History finasteride 5 mg tablet 5 mg PO DAILY 05/20/21 05/20/21 05/20/21 History fluticasone propionate 50 2 spray INTRANASAL DAILY 05/20/21 05/20/21 Unknown History mcg/actuation nasal spray,suspension polyethylene glycol 3350 17 17 g PO DAILY 05/20/21 05/20/21 05/20/21 History gram/dose oral powder (Miralax) tamsulosin 0.4 mg capsule 0.4 mg PO BEDTIME 05/20/21 05/20/21 05/19/21 History Physical Exam Vital Signs: Vital Signs: Last Vital Signs Temp 98.3 F 05/21/21 02:18 Pulse 63 05/21/21 07:54 Resp 10 L 05/21/21 07:54 BP 146/87 H 05/21/21 07:54 Pulse Ox 96 05/21/21 07:54 BMI result Body Mass Index 24.0 Const: Other: Constitutional : Alert, oriented, not in distress Neck : Normal inspection, Supple Cardiovascular : RRR, S1 S2, no lower extremity edema Respiratory : Good bilateral air entry, no crackles, wheezes or rhonchi Gastrointestinal: soft, lax, Normal bowel sounds, Non tender Skin : Warm, Dry Neurological : Alert & oriented x3, No focal deficit, CN II-XII within normal Neuro: Other: the subtle bilateral upper quadrant visual field deficits. He has a drift of the left upper extremity with subtle weakness in the left sluice tender triceps and deltoids graded at 5 minus/5. Otherwise his neurological examination is normal Results Labs CBC & Chem 7: 05/21/21 07:25 05/21/21 07:25 Labs: Short CBC 05/21/21 Range/Units 07:25 WBC 4.2 L (4.8-10.8) X10*3/uL Hgb 15.0 (14.0-18.0) g/dl Hct 44.9 (42.0-52.0) % Plt Count 145 L (160-400) X10*3/uL BMP 05/21/21 07:25 Sodium 139 Potassium 4.3 Chloride 107 Carbon Dioxide 27 BUN 13 Creatinine 0.75 Calcium 9.3 Urine 05/20/21 Range/Units 19:19 Urine Color YELLOW Urine Appearance CLEAR Urine pH 6.0 (5.0-8.0) Ur Specific [place] 1.010 (1.005-1.025) Urine Protein NEG (NEG-TRACE) MG/DL Urine Glucose (UA) NEG (NEG) MG/DL Assessment and Plan (1) Infarction of parietal lobe: Status: Acute (2) Acute embolic stroke: Status: Acute multiple bilateral embolic strokes involving the frontal parietal and occipital regions bilaterally in the right cerebellum consistent with a cardiac source of embolization. CTA does not show any occlusive disease Plan Jimmy recommend a BRANDI which can be done as outpatient. He should have a 30 day cardiac event monitor. He should continue anticoagulants either with Coumadin or Eliquis. Outpatient followup in 2 weeks Procedures Date of Service Date of Service: 05/21/21
[2021-05-21 18:25] VITALS: BP 148/78; PULSE 66; RESP 17; TEMP 36.2; O2SAT 96
[2021-05-21 23:23] VITALS: BP 168/86; PULSE 53; RESP 18; TEMP 36.6; O2SAT 94
[2021-05-22 04:00] VITALS: BP 144/85; PULSE 63; RESP 20; TEMP 36.8; O2SAT 97
[2021-05-22 07:19] VITALS: BP 147/82; PULSE 72; RESP 18; TEMP 36.3; O2SAT 96
[2021-05-22 07:36] LABS: Hematocrit 45.3 % (42.0-52.0); Hemoglobin 15.4 g/dl (14.0-18.0); Mean Corpuscular Hemoglobin 30.9 pg (27.0-33.0); Mean Corpuscular Volume 90.8 fL (80.0-98.0); Mean Platelet Volume 9.3 fL (9.4-12.4); Platelet Count 147 X10*3/uL (160-400); Red Blood Count 4.99 X10*6/uL (4.60-5.80); Red Cell Distribution Width 13.9 % (11.0-16.0); White Blood Count 4.3 X10*3/uL (4.8-10.8)
[2021-05-22 07:49] LABS: Anion Gap 12 (12-20); Blood Urea Nitrogen 11 mg/dL (9-16); Calcium 9.5 mg/dL (8.4-10.2); Carbon Dioxide 27 mmol/L (22-29); Chloride 104 mmol/L (96-108); Creatinine Clr Calc Pharmacy 83.6; Estimated Glomerular Filt Rate > 60; Glucose Random 104 mg/dL (60-115); Sodium 139 mmol/L (135-145)
--- NOTE | 2021-05-22 09:17 | P.CONCA_ITS ---
History of Present Illness History of Present Illness Date of Service: 05/22/21 Chief complaint: CVA Narrative: This is a cardiology consultation regarding evaluation for cardiac source of emboli. Patient has been admitted with symptoms of left arm numbness/tingling and not feeling well. He has been diagnosed with embolic stroke. From the cardiac standpoint we have been asked to assess him further. He denies any history of coronary disease or myocardial infarction or cardiomyopathy or cardiac arrhythmias or in fact any cardiac issues whatsoever the past. 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 The radiation itself is completed last September. He continues to have some swallowing issues. Otherwise, from the cardiac standpoint he denies any chest pain or shortness of breath or in fact any cardiac symptoms whatsoever. Review of Systems Review of Systems: Yes all other systems are reviewed and are negative Constitutional: Constitutional: Reports as per HPI Eyes: Eyes: Reports as per HPI ENT: Reports as per HPI Cardiovascular: Cardiovascular: Reports as per HPI, Denies acrocyanosis, Denies cool extremities, Denies chest pain, Denies leg edema, Denies lightheade dness, Denies palpitations and Denies dyspnea Respiratory: Respiratory: Reports as per HPI, Reports no additional respiratory complaints and Denies dyspnea Gastrointestinal: Gastrointestinal: Reports as per HPI and Reports no additional gastrointestinal complaints Genitourinary: Genitourinary: Reports no additional male genitourinary co mplaints and Reports as per HPI Musculoskeletal: Musculoskeletal: Reports no additional musculoskeletal complaints, Reports as per HPI and Reports tingling Integumentary/Breasts: Skin/Breast: Reports system reviewed and no additional complaints, except as docu Neurologic: Reports system reviewed and no additional complaints, except as documented, Reports as per HPI, Reports focal weakness, Reports tingling and Reports paresthesias Psychiatric: Psychiatric: Reports no additional psychiatric complaints and Reports as per HPI Endocrine: Endocrine: Reports no additional endocrine complaints, Reports as per HPI and Denies palpitations Hematologic/Lymphatic: Hematologic/Lymphatic: Reports no additional hematologic/lymphatic complaints and Reports as per HPI Allergic/Immunologic: Allergic/Immunologic: Reports no additional allergic/immunologic complaints and Reports as per HPI [facility] Past Medical History Medical History (Updated 05/22/21 @ 09:22 by Kole Huang MD) Essential hypertension Other and unspecified hyperlipidemia Tonsillar cancer Family History Family History (Updated 05/22/21 @ 09:20 by Kole Huang MD) Father Hx of CABG Surgical History Surgical History (Updated 05/22/21 @ 09:22 by Kole Huang MD) History of throat surgery Social History Social History Household Members: Spouse Housing: House Do you presently have visiting nurse or other home services: No Alcohol intake: current Alcohol intake frequency: other Alcohol type: beer and wine Patient Tobacco Use Status: Former Tobacco user service: No Current occupational status: employed Meds Allergies Allergy/AdvReac Type Severity Reaction Status Date / Time No Known Allergies Allergy Unverified 11/10/19 14:34 Active Medications: Current Medications Acetaminophen (Acetaminophen 325 Mg Tablet) 650 mg PO Q6H PRN PRN Reason: Pain, Mild (Pain Scale 1-3) Apixaban (Apixaban 5 Mg Tablet) 5 mg PO BID [facility] Last Admin: 05/21/21 21:05 Dose: 5 mg Documented by: Atorvastatin Calcium (Atorvastatin Calcium 80 Mg Tablet) 80 mg PO DAILY [facility] Last Admin: 05/21/21 08:03 Dose: 80 mg Documented by: Finasteride (Finasteride 5 Mg Tablet) 5 mg PO DAILY [facility] Last Admin: 05/21/21 08:03 Dose: 5 mg Documented by: Fluticasone Propionate (Fluticasone Propionate Nasal 16 Gm [place]) 2 spray NOSTRIL-B DAILY [facility] Last Admin: 05/21/21 08:03 Dose: Not Given Documented by: Melatonin (Melatonin 3 Mg Tablet) 6 mg PO BEDTIME PRN PRN Reason: Insomnia Polyethylene Glycol (Polyethylene Glycol 3350 17 Gm Powd.Pack) 17 gm PO DAILY [facility] Last Admin: 05/21/21 08:03 Dose: Not Given Documented by: Senna (Sennosides 8.6 Mg Tablet) 17.2 mg PO BEDTIME PRN PRN Reason: Constipation Sodium Chloride (0.9 % Sodium Chloride Flush 3 Ml Syringe) 3 ml IVFLUSH QSHIFT [facility] Last Admin: 05/21/21 23:55 Dose: 3 ml Documented by: Tamsulosin HCl (Tamsulosin Hcl 0.4 Mg Capsule) 0.4 mg PO BEDTIME [facility] Last Admin: 05/21/21 21:05 Dose: 0.4 mg Documented by: Vitamin D (Cholecalciferol (Vitamin D3) 25 Mcg Tablet) 25 mcg PO DAILY [facility] Last Admin: 05/21/21 08:03 Dose: 25 mcg Documented by: Home Medications Medication Instructions Recorded Confirmed Last Taken Type atorvastatin 10 mg tablet 10 mg PO DAILY 05/20/21 05/20/21 05/20/21 History cholecalciferol (vitamin D3) 25 25 mcg PO DAILY 05/20/21 05/20/21 Unknown History mcg (1,000 unit) tablet enalapril maleate 10 mg tablet 10 mg PO DAILY 05/20/21 05/20/21 05/20/21 History finasteride 5 mg tablet 5 mg PO DAILY 05/20/21 05/20/21 05/20/21 History fluticasone propionate 50 2 spray INTRANASAL DAILY 05/20/21 05/20/21 Unknown History mcg/actuation nasal spray,suspension polyethylene glycol 3350 17 17 g PO DAILY 05/20/21 05/20/21 05/20/21 History gram/dose oral powder (Miralax) tamsulosin 0.4 mg capsule 0.4 mg PO BEDTIME 05/20/21 05/20/21 05/19/21 History Physical Exam Vital Signs: Vital Signs: Last Vital Signs Temp 97.3 F 05/22/21 07:19 Pulse 72 05/22/21 07:19 Resp 18 05/22/21 07:19 BP 147/82 H 05/22/21 07:19 Pulse Ox 96 05/22/21 07:19 BMI result Body Mass Index 24.0 Const: General: comfortable HEENT: Head: Yes normal to inspection Neck: Neck: Yes normal visual inspection Chest: Chest palpation & inspection: normal inspection of the chest Resp: Auscultation: clear to auscultation bilaterally Cardio: Palpation: normal PMI Heart sounds: S1 normal heart sound present, S2 normal heart sound present, no gallops, no murmurs and no rubs GI: Palpation (GI): Soft to palpation Back/Spine/Pelvis: Other: unremarkable Skin: General skin exam: no rashes or lesions noted Neuro: Cognition (Neuro): normal cognition Extrem: General: Yes normal to inspection Psych: Mental Status: mental status grossly normal Objective Labs and Meds Result diagrams: 05/22/21 06:32 03/30/22 06:32 Lab results: Laboratory Results - last 24 hr 05/22/21 05/22/21 06:32 06:32 WBC 4.3 L RBC 4.99 Hgb 15.4 Hct 45.3 MCV 90.8 MCH 30.9 MCHC 34.0 RDW 13.9 Plt Count 147 L MPV 9.3 L Absolute Nucleated RBC 0.000 Nucleated RBC % (auto) 0.0 Sodium 139 Potassium 4.0 Chloride 104 Carbon Dioxide 27 Anion Gap 12 BUN 11 Creatinine 0.75 Estim Creat Clear Calc 83.6 Estimated GFR > 60 Random Glucose 104 Calcium 9.5 Assessment and Plan (1) Acute embolic stroke: Status: Acute Plan EKG shows sinus rhythm at 67/Min; no significant ST-T changes and otherwise unremarkable. With regard to the labs, high sensitivity troponins are within normal limits. In the MRI, multiple small acute embolic infarcts noted in the right cerebellum, bilateral occipital lobes, bilateral parietal lobes and right greater than left frontal lobe. Source of emboli could be a other cardiac or from great vessels. We discussed about transesophageal echocardiogram. However, he does have a history of surgery in his throat and has swelling issues to start with. Discussed about the procedure in detail. He understands but would like the ENT surgeon from [place] to clear this 1st. Hence I have left a message with the surgeon's office-Dr. Rincon at [facility] to clarify the feasibility and safety of procedure. In that case, possibly tomorrow. However if any technical diffi culty, may have to defer this to be performed in [place]. With regard arrhythmia monitoring, no evidence of atrial fibrillation so far. Probably start with a 30 day event monitor after this. With regard to ILR placement, will need to clarify if any issues with fibrosis in the chest wall. It seems that he did have lymph node removal from the neck as well. Procedures Date of Service Date of Service: 05/22/21
[2021-05-22] MEDS: 0.9 % Sodium Chloride Flush 3 ML SYRINGE IVFLUSH ×3 (09:32→21:25)
[2021-05-22] MEDS: Finasteride 5 MG TABLET PO (09:33)
[2021-05-22] MEDS: Apixaban 5 MG TABLET PO ×2 (09:33→21:25)
[2021-05-22] MEDS: Atorvastatin Calcium 80 MG TABLET PO (09:33)
[2021-05-22] MEDS: polyethylene glycoL 3350 17 GM POWD.PACK PO (09:33)
[2021-05-22] MEDS: Cholecalciferol (Vitamin D3) 25 MCG TABLET PO (09:33)
--- NOTE | 2021-05-22 09:41 | MHC.CM.PN ---
per pt and ot evals recommen dations are for outpt servceis
[2021-05-22 11:20] VITALS: BP 146/88; PULSE 86; RESP 18; TEMP 37.2; O2SAT 97
--- NOTE | 2021-05-22 12:10 | P.PNIM_ITS ---
Subjective Subjective Date of Service: 05/22/21 Interval History: Being followed for multiple bilateral embolic strokes, patient is feeling better except has mild left upper extremity weakness, denies visual symptoms , no speech impairment, no change in baseline dysphagia, tolerating chopped advance diet. Review of Systems Review of Systems: Yes all other systems are reviewed and are negative Physical Exam Vital Signs: Vital Signs: Last Vital Signs Temp 98.9 F 05/22/21 11:20 Pulse 86 05/22/21 11:20 Resp 18 05/22/21 11:20 BP 146/88 H 05/22/21 11:20 Pulse Ox 97 05/22/21 11:20 BMI result Body Mass Index 24.0 Const: Other: Constitutional : A lert, oriented, no acute distress Ne ck : Normal inspec tion, Supple Cardi ovascular : RRR, S 1 S2, no lower ext remity edema Respi ratory : lungs cl ear to auscultatio n,? no crackles, w heezes or rhonchi Gastrointestinal:? soft, Normal rai l sounds, Non tend er Skin : Warm, Dr trena Neurological : A lert & oriented x3 , CN II-XII within normal, mild left upper extremity w eakness. psych isabella ropriate affect Objective Data Active Medications Acetaminophen (Acetaminophen 325 Mg Tablet) 650 mg PO Q6H PRN PRN Reason: Pain, Mild (Pain Scale 1-3) Apixaban (Apixaban 5 Mg Tablet) 5 mg PO BID [facility] Last Admin: 05/22/21 09:33 Dose: 5 mg Documented by: NAY Atorvastatin Calcium (Atorvastatin Calcium 80 Mg Tablet) 80 mg PO DAILY [facility] Last Admin: 05/22/21 09:33 Dose: 80 mg Documented by: NAY Finasteride (Finasteride 5 Mg Tablet) 5 mg PO DAILY [facility] Last Admin: 05/22/21 09:33 Dose: 5 mg Documented by: NAY Fluticasone Propionate (Fluticasone Propionate Nasal 16 Gm [place]) 2 spray NOSTRIL-B DAILY [facility] Last Admin: 05/22/21 09:33 Dose: Not Given Documented by: NAY Non-Admin Reason: Patient Refused Melatonin (Melatonin 3 Mg Tablet) 6 mg PO BEDTIME PRN PRN Reason: Insomnia Polyethylene Glycol (Polyethylene Glycol 3350 17 Gm Powd.Pack) 17 gm PO DAILY [facility] Last Admin: 05/22/21 09:33 Dose: 17 gm Documented by: NAY Senna (Sennosides 8.6 Mg Tablet) 17.2 mg PO BEDTIME PRN PRN Reason: Constipation Sodium Chloride (0.9 % Sodium Chloride Flush 3 Ml Syringe) 3 ml IVFLUSH QSHIFT [facility] Last Admin: 05/22/21 09:32 Dose: 3 ml Documented by: NAY Tamsulosin HCl (Tamsulosin Hcl 0.4 Mg Capsule) 0.4 mg PO BEDTIME [facility] Last Admin: 05/21/21 21:05 Dose: 0.4 mg Documented by: JERAMIE Vitamin D (Cholecalciferol (Vitamin D3) 25 Mcg Tablet) 25 mcg PO DAILY [facility] Last Admin: 05/22/21 09:33 Dose: 25 mcg Documented by: NAY Labs CBC & Chem 7: 05/22/21 06:32 05/22/21 06:32 Labs: Laboratory Results - last 24 hr 05/22/21 05/22/21 06:32 06:32 MCV 90.8 MCH 30.9 MCHC 34.0 RDW 13.9 Plt Count 147 L MPV 9.3 L Absolute Nucleated RBC 0.000 Nucleated RBC % (auto) 0.0 Anion Gap 12 Estim Creat Clear Calc 83.6 Estimated GFR > 60 Random Glucose 104 Calcium 9.5 Microbiology Microbiology Results: Microbiology 05/20/21 16:51 Blood Culture - Preliminary Blood - Venous No growth after 24 hours. 05/20/21 16:44 Blood Culture - Preliminary Blood - Venous No growth after 24 hours. Assessment and Plan (1) Infarction of parietal lobe: Status: Acute (2) Acute embolic stroke: Status: Acute Plan 76-year-old male with a past medical history of hypertension, hyperlipidemia, BPH, history of throat cancer status post surgery/radiotherapy with resultant lymphedema/lymphadenopathy; dysphagia; presented to the hospital today with a chief complaint of left arm numbness and tingling. # acute multiple Embolic stroke Presented with left arm numbness and tingling, persistent mild symptoms gradually improving, no new neuro deficit MRI showing multiple areas including parietal lobe, superior and inferior along with right cerebellum, occipital lobes bilaterally. No carotid stenosis reported by CTA Echo showed EF 62% no obvious valvular pathology seen diastolic function is normal for age Continue Eliquis and Lipitor to 80 mg neuro recommend BRANDI and 30 day cardiac event monitor and outpatient follow-up with Neuro in 2 weeks seen by cardiology Dr. Huang scheduled for BRANDI for tomorrow morning but needs to discuss case with with surgery from [facility] ( underwent throat surgery last July due to throat cancer) and also waiting for anaesthesia to clear for surgery due to history of throat surgery. keep patient NPO after midnight seen by PT and speech therapy they recommend to resume outpatient services at [facility] for both PT and speech therapy. # Hypertension mildly elevated blood pressure will resume home medication enalapril 10 mg daily # History of throat cancer status post surgery/radiotherapy ended in September Patient has baseline swallowing difficulties but able to manage soft food seen and evaluated by speech therapy they recommend to continue current diet DVT prophylaxis: Eliquis 5 mg b.i.d. patient will need inpatient hospitalization due to multiple embolic stroke will need BRANDI at am. Quality Stroke Does the patient have a stroke diagnosis?: No VTE Prior VTE?: No VTE Risk Level:: Medical - moderate - high VTE Device Contraindication: N/A - Device Ordered VTE Drug Contraindication: Treatment Not Indicated
--- NOTE | 2021-05-22 13:34 | MHC.SL.SWA ---
Speech Pathologist Impression: Oropharyngeal dysphagia Risk of Aspiration Due to: Neurological Condition Dysphasia Diet Status: No Change Liquid Consistency and Strategies for Safe Swallow: Liquid Intake Recommendation: Thin Liquid Intake Strategies: Small Sips Solid Food Consistency: Dietary Recommendations: Chopped/Advanced (NDD3) Additional Modifications to Solid Foods: moisten food with sauce/gravy, alternate bite of food with sip of liquid Oral Medication Intake: Crushed with Puree Please contact the pharmacy regarding appropriate crushable or liquid drug formulations that are available whenever modified delivery is recommended. Compensatory Strategies and Precautions to be Taken for Safe Swallow: Sitting Upright (90 deg) Double Swallow Small Bites and Sips Alternate Liquids/Solids Rate of Ingestion Change Avoid Specific Foods Supervision While Eating and Drinking for Safe Swallow: Intermittent Supervision Foods to Avoid: Acidic foods, temp extremes (very hot/cold), sticky textures, foods that break into pieces when chewed (e.g. brittle/crunchy foods). Swallowing Recommended Treatments: Compens. Strategy Educat. Recommendation for Speech: This is reportedly patient's baseline. D/C speech services at this time. Please re-refer if we can be of further assistance. Patient Clerical Assistant Clinican/Clinical Fellow: No Supervisory Statement: I have reviewed and agree with the student/clinical fellow's documentation: N/A Speech Language Pathologist: Carmen West M.A., CCC-MANAGER RADIO
[2021-05-22 15:15] VITALS: BP 136/96; PULSE 84; RESP 14; TEMP 36.8; O2SAT 95
[2021-05-22 19:10] VITALS: BP 150/83; PULSE 74; RESP 16; TEMP 37.1; O2SAT 93
[2021-05-22] MEDS: Tamsulosin HCL 0.4 MG CAPSULE PO (21:25)
[2021-05-22 23:12] VITALS: BP 129/94; PULSE 78; RESP 18; TEMP 36.8; O2SAT 94
[2021-05-23] VITALS (7 sets, daily range): BP systolic 137–172; BP diastolic 75–97; PULSE 62–84; RESP 16–18; TEMP 36.1–37; O2SAT 97–98
--- NOTE | 2021-05-23 09:34 | MHC.SHP ---
Pre-Procedural Eval Section A Date of Service: 05/23/21 Section B Chief Complaint: CVA Allergies: Allergies Allergy/AdvReac Type Severity Reaction Status Date / Time No Known Allergies Allergy Unverified 11/10/19 14:34 Plan I have reviewed the history and physical and performed a pertinent physical examination on my patient. No changes have occurred unless specified.
--- NOTE | 2021-05-23 10:03 | HO.ANESPROP2 ---
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) Past Medical History Medical History Essential hypertension Other and unspecified hyperlipidemia Tonsillar cancer Functional capacity: independent ambulation Family History Family History Father Hx of CABG Family history of problems with anesthesia: No Surgical History Surgical History (Updated 05/22/21 @ 09:22 by Kole Huang MD) History of throat surgery Social History Social History Household Members: Spouse Housing: House Do you presently have visiting nurse or other home services: No Alcohol intake: current Alcohol intake frequency: other Alcohol type: beer and wine Patient Tobacco Use Status: Former Tobacco user service: No Current occupational status: employed Meds Allergies Allergy/AdvReac Type Severity Reaction Status Date / Time No Known Allergies Allergy Unverified 11/10/19 14:34 Active Medications: Current Medications Acetaminophen (Acetaminophen 325 Mg Tablet) 650 mg PO Q6H PRN PRN Reason: Pain, Mild (Pain Scale 1-3) Apixaban (Apixaban 5 Mg Tablet) 5 mg PO BID [facility] Last Admin: 05/22/21 21:25 Dose: 5 mg Documented by: Atorvastatin Calcium (Atorvastatin Calcium 80 Mg Tablet) 80 mg PO DAILY [facility] Last Admin: 05/22/21 09:33 Dose: 80 mg Documented by: Enalapril Maleate (Enalapril Maleate 5 Mg Tablet) 5 mg PO DAILY [facility]; Protocol Finasteride (Finasteride 5 Mg Tablet) 5 mg PO DAILY [facility] Last Admin: 05/22/21 09:33 Dose: 5 mg Documented by: Fluticasone Propionate (Fluticasone Propionate Nasal 16 Gm [place]) 2 spray NOSTRIL-B DAILY [facility] Last Admin: 05/22/21 09:33 Dose: Not Given Documented by: Melatonin (Melatonin 3 Mg Tablet) 6 mg PO BEDTIME PRN PRN Reason: Insomnia Polyethylene Glycol (Polyethylene Glycol 3350 17 Gm Powd.Pack) 17 gm PO DAILY [facility] Last Admin: 05/22/21 09:33 Dose: 17 gm Documented by: Senna (Sennosides 8.6 Mg Tablet) 17.2 mg PO BEDTIME PRN PRN Reason: Constipation Sodium Chloride (0.9 % Sodium Chloride Flush 3 Ml Syringe) 3 ml IVFLUSH QSHIFT [facility] Last Admin: 05/22/21 21:25 Dose: 3 ml Documented by: Tamsulosin HCl (Tamsulosin Hcl 0.4 Mg Capsule) 0.4 mg PO BEDTIME [facility] Last Admin: 05/22/21 21:25 Dose: 0.4 mg Documented by: Vitamin D (Cholecalciferol (Vitamin D3) 25 Mcg Tablet) 25 mcg PO DAILY [facility] Last Admin: 05/22/21 09:33 Dose: 25 mcg Documented by: Home Medications Medication Instructions Recorded Confirmed Last Taken Type atorvastatin 10 mg tablet 10 mg PO DAILY 05/20/21 05/20/21 05/20/21 History cholecalciferol (vitamin D3) 25 25 mcg PO DAILY 05/20/21 05/20/21 Unknown History mcg (1,000 unit) tablet enalapril maleate 10 mg tablet 10 mg PO DAILY 05/20/21 05/20/21 05/20/21 History finasteride 5 mg tablet 5 mg PO DAILY 05/20/21 05/20/21 05/20/21 History fluticasone propionate 50 2 spray INTRANASAL DAILY 05/20/21 05/20/21 Unknown History mcg/actuation nasal spray,suspension polyethylene glycol 3350 17 17 g PO DAILY 05/20/21 05/20/21 05/20/21 History gram/dose oral powder (Miralax) tamsulosin 0.4 mg capsule 0.4 mg PO BEDTIME 05/20/21 05/20/21 05/19/21 History Exam Exam Date and Time: May 23, 2021 1003 Height,Weight and Vital Signs: Height 5 ft 8 in Weight 71.668 kg Last Vital Signs Temp 98.6 F 05/23/21 09:24 Pulse 70 05/23/21 09:24 Resp 18 05/23/21 09:24 BP 156/91 H 05/23/21 09:24 Pulse Ox 98 05/23/21 09:24 Pertinent Lab Results Pertinent Lab Results: Laboratory Tests 05/20/21 05/20/21 05/20/21 16:44 16:44 16:44 WBC 4.8 RBC 5.01 Hgb 14.7 Hct 44.6 MCV 89.0 MCH 29.3 MCHC 33.0 RDW 13.7 Plt Count 187 MPV 8.9 L Immature Gran % (Auto) 0.2 Neut % (Auto) 76.4 H Lymph % (Auto) 14.7 L Craig % (Auto) 8.1 Eos % (Auto) 0.4 Baso % (Auto) 0.2 Lymph # (Auto) 0.7 L Craig # (Auto) 0.4 Eos # (Auto) 0.0 Baso # (Auto) 0.0 Abs Immat Gran (auto) 0.01 Absolute Neuts (auto) 3.7 Absolute Nucleated RBC 0.000 Nucleated RBC % (auto) 0.0 PT 11.8 INR 1.0 APTT 29.8 Sodium 141 Potassium 4.0 Chloride 105 Carbon Dioxide 30 H Anion Gap 10 L BUN 21 H Creatinine 0.77 Estim Creat Clear Calc 81.4 Estimated GFR > 60 Random Glucose 104 Lactic Acid Calcium 9.6 Magnesium 2.2 Total Bilirubin 0.6 Direct Bilirubin 0.3 AST 18 ALT 18 Alkaline Phosphatase 63 Troponin I High Sens Total Protein 6.4 L Albumin 4.4 Triglycerides Cholesterol LDL Cholesterol, Calc HDL Cholesterol Lipase 28 Urine Color Urine Appearance Urine pH Ur Specific [place] Urine Protein Urine Glucose (UA) Urine Ketones Urine Blood Urine Nitrite Ur Leukocyte Esterase COVID-19 ([facility]) COVID-19 Clin Com 05/20/21 05/20/21 05/20/21 16:44 16:44 19:19 WBC RBC Hgb Hct MCV MCH MCHC RDW Plt Count MPV Immature Gran % (Auto) Neut % (Auto) Lymph % (Auto) Craig % (Auto) Eos % (Auto) Baso % (Auto) Lymph # (Auto) Craig # (Auto) Eos # (Auto) Baso # (Auto) Abs Immat Gran (auto) Absolute Neuts (auto) Absolute Nucleated RBC Nucleated RBC % (auto) PT INR APTT Sodium Potassium Chloride Carbon Dioxide Anion Gap BUN Creatinine Estim Creat Clear Calc Estimated GFR Random Glucose Lactic Acid 1.0 Calcium Magnesium Total Bilirubin Direct Bilirubin AST ALT Alkaline Phosphatase Troponin I High Sens < 3.5 Total Protein Albumin Triglycerides Cholesterol LDL Cholesterol, Calc HDL Cholesterol Lipase Urine Color YELLOW Urine Appearance CLEAR Urine pH 6.0 Ur Specific [place] 1.010 Urine Protein NEG Urine Glucose (UA) NEG Urine Ketones NEG Urine Blood NEG Urine Nitrite NEG Ur Leukocyte Esterase NEG COVID-19 ([facility]) COVID-19 Clin Com 05/20/21 05/21/21 05/21/21 23:00 02:58 07:25 WBC 4.2 L RBC 5.03 Hgb 15.0 Hct 44.9 MCV 89.3 MCH 29.8 MCHC 33.4 RDW 13.6 Plt Count 145 L MPV 8.8 L Immature Gran % (Auto) 0.2 Neut % (Auto) 73.9 H Lymph % (Auto) 17.5 L Craig % (Auto) 7.0 Eos % (Auto) 1.2 Baso % (Auto) 0.2 Lymph # (Auto) 0.7 L Craig # (Auto) 0.3 Eos # (Auto) 0.1 Baso # (Auto) 0.0 Abs Immat Gran (auto) 0.01 Absolute Neuts (auto) 3.1 Absolute Nucleated RBC 0.000 Nucleated RBC % (auto) 0.0 PT INR APTT Sodium Potassium Chloride Carbon Dioxide Anion Gap BUN Creatinine Estim Creat Clear Calc Estimated GFR Random Glucose Lactic Acid Calcium Magnesium Total Bilirubin Direct Bilirubin AST ALT Alkaline Phosphatase Troponin I High Sens 4.9 Total Protein Albumin Triglycerides Cholesterol LDL Cholesterol, Calc HDL Cholesterol Lipase Urine Color Urine Appearance Urine pH Ur Specific [place] Urine Protein Urine Glucose (UA) Urine Ketones Urine Blood Urine Nitrite Ur Leukocyte Esterase COVID-19 ([facility]) Negative COVID-19 Clin Com See Note 05/21/21 05/21/21 05/22/21 07:25 07:25 06:32 WBC 4.3 L RBC 4.99 Hgb 15.4 Hct 45.3 MCV 90.8 MCH 30.9 MCHC 34.0 RDW 13.9 Plt Count 147 L MPV 9.3 L Immature Gran % (Auto) Neut % (Auto) Lymph % (Auto) Craig % (Auto) Eos % (Auto) Baso % (Auto) Lymph # (Auto) Craig # (Auto) Eos # (Auto) Baso # (Auto) Abs Immat Gran (auto) Absolute Neuts (auto) Absolute Nucleated RBC 0.000 Nucleated RBC % (auto) 0.0 PT 11.7 INR 1.0 APTT Sodium 139 Potassium 4.3 Chloride 107 Carbon Dioxide 27 Anion Gap 9 L BUN 13 Creatinine 0.75 Estim Creat Clear Calc 83.6 Estimated GFR > 60 Random Glucose 115 Lactic Acid Calcium 9.3 Magnesium Total Bilirubin Direct Bilirubin AST ALT Alkaline Phosphatase Troponin I High Sens Total Protein Albumin Triglycerides 70 Cholesterol 152 LDL Cholesterol, Calc 71 HDL Cholesterol 67 Lipase Urine Color Urine Appearance Urine pH Ur Specific [place] Urine Protein Urine Glucose (UA) Urine Ketones Urine Blood Urine Nitrite Ur Leukocyte Esterase COVID-19 ([facility]) COVID-19 Clin Com 05/22/21 06:32 WBC RBC Hgb Hct MCV MCH MCHC RDW Plt Count MPV Immature Gran % (Auto) Neut % (Auto) Lymph % (Auto) Craig % (Auto) Eos % (Auto) Baso % (Auto) Lymph # (Auto) Craig # (Auto) Eos # (Auto) Baso # (Auto) Abs Immat Gran (auto) Absolute Neuts (auto) Absolute Nucleated RBC Nucleated RBC % (auto) PT INR APTT Sodium 139 Potassium 4.0 Chloride 104 Carbon Dioxide 27 Anion Gap 12 BUN 11 Creatinine 0.75 Estim Creat Clear Calc 83.6 Estimated GFR > 60 Random Glucose 104 Lactic Acid Calcium 9.5 Magnesium Total Bilirubin Direct Bilirubin AST ALT Alkaline Phosphatase Troponin I High Sens Total Protein Albumin Triglycerides Cholesterol LDL Cholesterol, Calc HDL Cholesterol Lipase Urine Color Urine Appearance Urine pH Ur Specific [place] Urine Protein Urine Glucose (UA) Urine Ketones Urine Blood Urine Nitrite Ur Leukocyte Esterase COVID-19 ([facility]) COVID-19 Clin Com Airway Mallampati Class: II TM Dist: >3cm Neck ROM: Full Heart: RRR Lungs: cCTA Assessment and Plan Final Anesthetic Review Family History of Problems with Anesthesia: No ASA Class: III Final Preanesthetic Review: No Changes in Pt Med Stat, Meds/Allgs Chart Reviewed, Consent Obtained/Reviewed and Anes Risks/Benef Reviewed Patient Risk: Intermediate Procedure Risk: Low Anesthetic Plan Anesthetic Plan: GA Disposition: Standard PACU
--- NOTE | 2021-05-23 10:50 | PM.EVENT ---
Event Note Date of Service: 05/23/21 Event Note: Patient was taken to OR for planned BRANDI. Intubated by anesthesiologist due to aspiration risk. BRANDI probe placement was then attempted gently by the anesthesiologists(independently by and ). Could not proceed beyond oral cavity. Then they tried OGT which could be passed. Hence, likely BRANDI probe is too large for his throat. No images were acquired. Procedure was then stopped.
--- NOTE | 2021-05-23 11:09 | PM.PNCARD ---
Subjective Subjective Date of Service: 05/23/21 Interval history: He was seen before and after the BRANDI. From a cardiac standpoint itself, no specific symptoms. Review of Systems Review of Systems Yes all other systems are reviewed and are negative Constitutional: Reports as per HPI Eyes: Reports as per HPI Reports as per HPI and Reports dysphagia Cardiovascular: Reports as per HPI, Denies acrocyanosis, Denies cool extremities, Denies chest pain, Denies leg edema, Denies lightheadedness, Denies palpitations and Denies dyspnea Respiratory: Reports as per HPI, Reports no additional respiratory complaints and Denies dyspnea Gastrointestinal: Reports as per HPI, Reports no additional gastrointestinal complaints and Reports dysphagia Genitourinary: Reports no additional male genitourinary complaints and Reports as per HPI Musculoskeletal: Reports no additional musculoskeletal complaints and Reports as per HPI Skin/Breast: Reports system reviewed and no additional complaints, except as docu Reports system reviewed and no additional complaints, except as documented and Reports as per HPI Psychiatric: Reports no additional psychiatric complaints and Reports as per HPI Endocrine: Reports no additional endocrine complaints, Reports as per HPI and Denies palpitations Hematologic/Lymphatic: Reports no additional hematologic/lymphatic complaints and Reports as per HPI Allergic/Immunologic: Reports no additional allergic/immunologic complaints and Reports as per HPI Physical Exam Vital Signs: Last Vital Signs Temp 97.0 F 05/23/21 10:56 Pulse 73 05/23/21 10:56 Resp 16 05/23/21 10:56 BP 165/75 H 05/23/21 10:56 Pulse Ox 97 05/23/21 10:56 BMI result Body Mass Index 24.0 Const General: comfortable HEENT Other: Unremarkable Head: Yes normal to inspection Neck Neck: Yes normal visual inspection Chest Chest palpation & inspection: normal inspection of the chest Resp Auscultation: clear to auscultation bilaterally Cardio Palpation: normal PMI Heart sounds: S1 normal heart sound present, S2 normal heart sound present, no gallops, no murmurs and no rubs GI Palpation (GI): Soft to palpation Back/Spine/Pelvis Other: unremarkable Skin General skin exam: no rashes or lesions noted Neuro Cognition (Neuro): normal cognition Extrem General: Yes normal to inspection Psych Mental Status: mental status grossly normal Objective Labs and Meds Result diagrams: 05/22/21 06:32 05/22/21 06:32 Progress Note: A&P Assessment and plan (1) Acute embolic stroke: Status: Acute Plan Yesterday evening, discussed with nurse practitioner from his ENT surgeons office who stated that it was okay to proceed with BRANDI. This was discussed with one of the daughters yesterday, another daughter today and today. Then he was taken to the operating room but unfortunately BRANDI probe placement was not successful. Possibly from fibrosis in the throat. Hence procedure was not performed. Based on the embolic stroke itself, he can get treatment for presumed atrial fibrillation. It seems that he has already been commenced on Eliquis. That can be continued. We can arrange outpatient 30 day event monitor. Bubble study can be performed if able, before discharge. Follow-up in the office of be arranged. Fall Risk Details Current Medications: Current Medications Acetaminophen (Acetaminophen 325 Mg Tablet) 650 mg PO Q6H PRN PRN Reason: Pain, Mild (Pain Scale 1-3) Apixaban (Apixaban 5 Mg Tablet) 5 mg PO BID [facility] Last Admin: 05/22/21 21:25 Dose: 5 mg Documented by: Atorvastatin Calcium (Atorvastatin Calcium 80 Mg Tablet) 80 mg PO DAILY [facility] Last Admin: 05/22/21 09:33 Dose: 80 mg Documented by: Enalapril Maleate (Enalapril Maleate 5 Mg Tablet) 5 mg PO DAILY [facility]; Protocol Fentanyl (Fentanyl Citrate/Pf 100 Mcg/2 Ml Vial) 25 mcg IVPUSH Q5M PRN; Protocol PRN Reason: Pain, Moderate (Pain Scale 4-6 Finasteride (Finasteride 5 Mg Tablet) 5 mg PO DAILY [facility] Last Admin: 05/22/21 09:33 Dose: 5 mg Documented by: Fluticasone Propionate (Fluticasone Propionate Nasal 16 Gm [place]) 2 spray NOSTRIL-B DAILY [facility] Last Admin: 05/22/21 09:33 Dose: Not Given Documented by: Melatonin (Melatonin 3 Mg Tablet) 6 mg PO BEDTIME PRN PRN Reason: Insomnia Ondansetron HCl (Ondansetron Hcl 4 Mg/2 Ml Vial) 4 mg IVPUSH ONCE PRN PRN Reason: Nausea and Vomiting Polyethylene Glycol (Polyethylene Glycol 3350 17 Gm Powd.Pack) 17 gm PO DAILY [facility] Last Admin: 05/22/21 09:33 Dose: 17 gm Documented by: Senna (Sennosides 8.6 Mg Tablet) 17.2 mg PO BEDTIME PRN PRN Reason: Constipation Sodium Chloride (0.9 % Sodium Chloride Flush 3 Ml Syringe) 3 ml IVFLUSH QSHIFT [facility] Last Admin: 05/22/21 21:25 Dose: 3 ml Documented by: Tamsulosin HCl (Tamsulosin Hcl 0.4 Mg Capsule) 0.4 mg PO BEDTIME [facility] Last Admin: 05/22/21 21:25 Dose: 0.4 mg Documented by: Vitamin D (Cholecalciferol (Vitamin D3) 25 Mcg Tablet) 25 mcg PO DAILY [facility] Last Admin: 05/22/21 09:33 Dose: 25 mcg Documented by: Time Spent With Patient Time: Total time spent is greater than 50% in coordination of care (as documented) at patient's floor/unit and/or counseling patient: 40 minutes. This excludes time spent in the OR for attempting BRANDI. Progress Note: Quality Stroke Does the patient have a stroke diagnosis?: No Procedures Date of Service Date of Service: 05/23/21
[2021-05-23] MEDS: Cholecalciferol (Vitamin D3) 25 MCG TABLET PO (11:53)
[2021-05-23] MEDS: Finasteride 5 MG TABLET PO (11:54)
[2021-05-23] MEDS: Atorvastatin Calcium 80 MG TABLET PO (11:54)
[2021-05-23] MEDS: 0.9 % Sodium Chloride Flush 3 ML SYRINGE IVFLUSH (11:54)
[2021-05-23] MEDS: Apixaban 5 MG TABLET PO (11:54)
[2021-05-23] MEDS: polyethylene glycoL 3350 17 GM POWD.PACK PO (11:55)
--- NOTE | 2021-05-23 14:20 | P.DS_ITS ---
DS: Providers Provider Date of Service: 05/23/21 Date of admission: 05/20/21 22:15 Primary care physician: Tomas Gold MD Consults: 05/20/21 22:16 Consult to Neurology Routine Consulting Provider: Tim Bryan Reason for consultation: cva 05/21/21 11:01 Consult to Cardiology Routine Consulting Provider: Kole Huang Reason for consultation: Acute embolic stroke for your kind evaluation Has provider been notified: Yes DS: Diagnosis Discharge Diagnosis (1) Acute embolic stroke: Status: Acute DS: Summary Hospital Course Hospital Course: Chief Complaint:? left upper extremity numbness and tingling 76-year-old male with a past medical history of hypertension, hyperlipidemia, BPH, history of throat cancer status post surgery/radiotherapy with resultant lymphedema/lymphadenopathy;? dysphagia; presented to the hospital today with a chief complaint of left arm numbness and tingling.? Patient reported that this morning he noted to have mild left arm numbness and tingling, not feeling well; denies any weakness, falls.? Denies any headaches, blurry visions, lightheadedness or dizziness.? Also spoke to the patient's family at bedside who mentioned that patient was m entioning he was not feeling right yesterday and this morning he went to the work and where he had developed symptoms of left upper extremity numbness and tingling subsequently came home.? Around 04:30 he had numbness and tingling which are prominent left upper extremity; immediately call the ambulance and came to the ER for further evaluation.? At the time of my interview patient reported that he still has mild numbness in the left arm.? Also mentions that he had difficulty grabbing the cup at work today. Denies any fever chills cough.? Patient mentioned that he has mild lymphedema his throat and face; initially attributed his symptoms to the lymphedema.? Patient also reports that he has difficulty swallowing post surgery; has been able to manage soft diet.? Denies any GI symptoms.? Review of all other systems is negative except mentioned above ER course: Per ER team patient noted to have slightly decreased sensation on the left upper extremity; last well-known time was 10:30 in the morning.? Patient out of window for tPA.? MRI brain.? 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 Spoke to Dr. Bryan from Neurology who suggested to continue aspirin 81 mg. Patient had MRI brain which showed multiple embolic stroke involving cerebellum.? Admitted for further management. Hospital course 76-year-old male with a past medical history of hypertension, hyperlipidemia, BPH, history of throat cancer status post surgery/radiotherapy with resultant lymphedema/lymphadenopathy;? dysphagia; presented to the hospital today with a chief complaint of left arm numbness and tingling and diagnosed to have multiple acute embolic strokes.? # multiple acute Embolic stroke patient presented with left arm numbness and tingling, MRI showed multiple areas including parietal lobe, superior and inferior along with right cerebellum, occipital lobes bilaterally. No carotid stenosis reported by CTA,Echo? showed EF 62% no obvious valvular pathology seen diastolic function is normal for age, patient started on Eliquis and continued on Lipitor, and BRANDI was attempted but BRANDI probe was too large for his throat likely due to scarring from prior neck surgery and radiation, therefore procedure was stopped , recommend outpatient echocardiogram for bubble study tomorrow at 07:30am and also recommend close outpatient follow-up with Cardiology for event recorder. seen by PT and speech therapy they recommend to resume outpatient services at [facility] for both PT and speech therapy. # Hypertension Continue enalapril 10mg. # History of throat cancer status post surgery/radiotherapy ended in September. Time Spent with Patient Time attestation: Total time spent providing and/or coordinating discharge services: Discharge coordination time: Greater than 30 minutes Quality: Stroke Does the patient have a stroke diagnosis?: Yes Reason for No Anti-thrombotic at DC: N/A - Med Ordered Reason for No Anticoagulant at DC: N/A - Med Ordered Reason Not Initiating IV-Tpa: Drug treatment not indicated Reason for No Anti-thrombotic by Day Two: N/A - Med Ordered Reason for No Statin at DC: N/A - Med Ordered Physical Exam Vital Signs: Vital Signs: Last Vital Signs Temp 97.8 F 05/23/21 11:55 Pulse 62 05/23/21 11:55 Resp 18 05/23/21 11:55 BP 163/88 H 05/23/21 11:55 Pulse Ox 97 05/23/21 11:55 BMI result Body Mass Index 24.0 Const: Other: Constitutional : Alert, oriented, no?acute distress Neck : Normal inspection, Supple Cardiovascular : RRR, S1 S2, no lower extremity edema Respiratory :? lungs clear to auscultation,? no crackles, wheezes or rhonchi Gastrointestinal:??soft, Normal bowel sounds, Non tender Skin : Warm, Dry Neurological : Alert & oriented x3, CN II-XII within?normal, mild left?upper ext remity weakness. psych appropriate affect DS: Data Data Completed and Pending Labs on day of discharge: Preliminary micro results at discharge 05/20/21 16:51 Blood Culture - Preliminary Blood - Venous No growth after 48 hours. 05/20/21 16:44 Blood Culture - Preliminary Blood - Venous No growth after 48 hours. Discharge Plan Discharge Patient Disposition: Home, Self-Care Discharge Diagnosis: acute multiple embolic stroke Referrals: Tomas Gold MD [Primary Care Provider] - 1 Week Discharge Medications: New Eliquis 5 mg Tablet 5 mg PO BID Qty: 60 0RF Continued fluticasone propionate 50 mcg/actuation [place],Suspension 2 spray INTRANASAL DAILY 0RF Rx Instructions: administer into each nostril atorvastatin 10 mg Tablet 10 mg PO DAILY 0RF tamsulosin 0.4 mg Capsule 0.4 mg PO BEDTIME 0RF finasteride 5 mg Tablet 5 mg PO DAILY 0RF enalapril maleate 10 mg Tablet 10 mg PO DAILY 0RF cholecalciferol (vitamin D3) 25 mcg (1,000 unit) Tablet 25 mcg PO DAILY 0RF polyethylene glycol 3350 [Miralax] 17 gram/dose Powder 17 g PO DAILY 0RF Discharge Orders: Discharge Order (Routine); Ordered 05/23/21 Ordered By: Romina Hernández Diet: low fat, low cholesterol Activity on Discharge: As tolerated Stand Alone Forms: Patient Portal Discharge page Care Plan Goals: multiple embolic stroke take Eliquis 5 mg twice daily, take all other home medications as before, continue speech therapy and physical therapy as before Health Concerns: as above Plan of Treatment: follow up at echo lab tomorrow morning at 07:30 for echocardiogram with bubble study/ outpatient follow-up with primary care physician and Cardiology. Assessment: per discharge summary
--- NOTE | 2021-05-23 14:20 | MHC.CM.PN ---
pt dcd home no skilled servceis ordered by
== END 2021-05-23 15:23 | disposition home or self-care (01) | DRG 66 ==
LOC: HO.ED 19:52 → HO.EDOVER 22:28 → HO.IMC 05-21 16:03
PROVIDERS: Nurse Practitioner Family; Student in an Organized Health Care Education/Training Program; Admitting Provider Hospitalist; Emergency Provider Emergency Medicine; PCP Internal Medicine; Visit Provider Hospitalist
DX: I63.89 Other cerebral infarction (principal); I10 Essential (primary) hypertension; R29.700 NIHSS score 0; E78.5 Hyperlipidemia, unspecified; Z92.3 Personal history of irradiation; N40.0 Benign prostatic hyperplasia without lower urinary tract symptoms; Z85.818 Personal history of malignant neoplasm of other sites of lip, oral cavity, and pharynx; Z20.822 Contact with and (suspected) exposure to COVID-19; Z87.891 Personal history of nicotine dependence; Z79.51 Long term (current) use of inhaled steroids; Z79.899 Other long term (current) drug therapy
CPT/HCPCS: 36415; 70496; 70498; 70551; 80048; 80061; 80076; 81003; 83605; 83690; 83735; 84484; 85025; 85027; 85610; 85730; 87040; 87635; 92526; 92610; 93005; 93306; 96360; 97162; 97165; 99285; J1650; J2250; Q9967

== ENCOUNTER → 2021-05-23 13:22 | Outpatient (REF) | payer OTHER, SELFPAY | LOC: HO.CARD 13:22 | PROVIDERS: Visit Provider Internal Medicine | DX: Z13.89 Encounter for screening for other disorder (principal) ==

== ENCOUNTER → 2021-05-24 07:39 | Outpatient (REF) | payer OTHER, SELFPAY ==
--- NOTE | 2021-05-24 07:45 | HM_ITS ---
TEST PERFORMED: Cardiac event monitoring. FINDINGS: In the above monitoring period, underlying rhythm is sinus. Rates ranged from 70 to 109 beats per minute. No arrhythmias of concern clearly documented. There is 1 strip, which is mentioned as urgent/sinus tachycardia/passing out, but that seems likely erroneous as we actually saw him in the office that day. Palpitations, chest pain, dizziness have been documented at different times but they correlate essentially with sinus rhythm. One PAC was noted. CONCLUSION: Unremarkable 30 day monitor showing sinus rhythm only. No evidence of atrial fibrillation. Kole Huang MD HS/MODIleana / [id number] MTDD
--- NOTE | 2021-05-24 07:45 | CA_ITS ---
Transthoracic Echocardiogram Limited Patient (Last, First, Middle): Howie Odell D Gender: Male Date of : 1945 Age: 76 Procedure Date: 05/24/2021 Procedure Type: Transthoracic Echocardiogram Limited Location: OP Height: 172.72 cm Weight: 71.22 kg BSA: 1.84 m2 Heart Rate: bpm BP: 135 / 80 mmHg Chief Guard: Referring MD: Kole Huang MD Symptoms: Q21.1 - Atrial septal defect, BUBBLE done Study Quality: Fair ECG Rhythm: Sinus Conclusions: - There is no evidence of interatrial shunt by agitated saline. Findings Atria There is no evidence of interatrial shunt by agitated saline. During rest and valsalva performed x 2. Prior Study Comparison No significant change compared to prior study dated: 05/21/2021. Updated in Other Vendor System with Status of Final Kole Huang MD electronically signed on 05/24/2021 12:59:28 PM with status of Final
== END | disposition home or self-care (01) ==
LOC: HO.CARD 07:39
PROVIDERS: Visit Provider Internal Medicine
DX: I63.9 Cerebral infarction, unspecified (principal); Q21.1 Atrial septal defect; I48.0 Paroxysmal atrial fibrillation
CPT/HCPCS: 93270; 93308

== ENCOUNTER → 2021-06-05 14:48 | Outpatient (BNVA) | payer OTHER, SELFPAY | PROVIDERS: PCP Internal Medicine; Referring Provider Internal Medicine; Visit Provider Internal Medicine | DX: Z13.89 Encounter for screening for other disorder (principal) ==

== ENCOUNTER 2021-07-31 11:09 | Outpatient (REF) | payer MEDICARE, SELFPAY ==
--- NOTE | ~2021-07-31 | MR_ITS ---
MRI OF THE BRAIN WITHOUT IV CONTRAST INDICATION: Imbalance. COMPARISON: Brain MRI 05/12/2021. TECHNIQUE: Multiplanar multisequence MR imaging of the brain was obtained without IV contrast. FINDINGS: There is no hydrocephalus, extra-axial surface collection, or herniation. 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 There is attenuated flow void within the left jugular vein, the left sigmoid sinus, and the left transverse sinus that is not present on the previous brain MRI. A CT the or MRV would be helpful in excluding the presence of venous thrombosis. This could alternatively reflect slow flow. There is no acute infarct on diffusion-weighted imaging. There is no intracranial hemorrhage on the gradient recalled echo acquisition. The midline structures are normal. The cerebellar tonsils are normally positioned. The cerebellum and brainstem are normal. The craniocervical junction is normal. Osseous marrow signal intensity is homogenous. The visualized soft tissues are unremarkable. MR/MR head/brain wo con IMPRESSION: - There is attenuated flow void within the left jugular vein, the left sigmoid sinus, and the left transverse sinus that is not present on the previous brain MRI. A CT the or MRV would be helpful in excluding the presence of venous thrombosis. This could alternatively reflect slow flow. 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
== END 2021-07-31 11:10 | disposition home or self-care (01) ==
LOC: HO.MRI 11:09
PROVIDERS: Visit Provider Psychiatry & Neurology Neurology
DX: R26.89 Other abnormalities of gait and mobility (principal)
CPT/HCPCS: 70551; 99212

== ENCOUNTER → 2021-11-06 10:27 | Outpatient (BNVA) | payer SELFPAY | PROVIDERS: PCP Internal Medicine; Visit Provider Physician Assistant Medical | DX: Z02.79 Encounter for issue of other medical certificate (principal) ==

== ENCOUNTER → 2022-02-19 09:42 | Outpatient (BNVA) | payer OTHER, SELFPAY | PROVIDERS: PCP Internal Medicine; Visit Provider Internal Medicine | DX: I63.9 Cerebral infarction, unspecified (principal); I10 Essential (primary) hypertension; R00.0 Tachycardia, unspecified; E78.5 Hyperlipidemia, unspecified | CPT/HCPCS: 93005 ==

== ENCOUNTER 2024-03-22 12:23 | Outpatient (AMB) | payer OTHER, SELFPAY ==
[2024-03-22 12:32] VITALS: BP 122/80; PULSE 74; BMI 26.9
--- NOTE | 2024-03-22 12:32 | A.OFFVIS_ITS ---
Vital Signs 03/22/24 12:32 03/22/24 12:42 Height 5 ft 7 in Weight 171 lb 15.369 oz BMI 26.9 BP 122/80 142/80 H Blood Pressure Location Rt brachial Lt brachial Position Sitting Sitting Pulse 74 74 Pulse Source Monitor Monitor Intake Visit Reasons: 2 Yr follow up Allergies No Known Allergies Allergy (Verified 07/31/21 12:30) Medication List - Last Reconciled 03/22/24 by Kole Huang MD apixaban (Eliquis) 5 mg PO BID atorvastatin 40 mg PO QPM cholecalciferol (vitamin D3) 25 mcg PO DAILY finasteride 5 mg PO DAILY fluticasone propionate 50 mcg/actuation 2 sprays intranasal DAILY lisinopril 30 mg PO omeprazole mg PO DAILY polyethylene glycol 3350 (Miralax) 17 grams PO DAILY PRN tamsulosin 0.4 mg PO BEDTIME HPI Comments Details: Howie returns for follow-up regarding stroke. Last seen in 2021. At that time, he was seen regarding concern for embolic stroke. He underwent further workup for the same. We had attempted transesophageal echocardiogram but because of his throat cancer history/surgery/radiation, probe could not be passed. Then the procedure itself was abandoned. There was no evidence of atrial fibrillation on telemetry or the 30 day monitor. He has been empirically maintained on Eliquis. Overall, he states he feels fine. He does not have any cardiac symptoms whatsoever. No palpitations or in fact anything along those lines. No other concerns. [facility] Medical History (Updated 03/22/24 @ 16:55 by Kole Huang MD) Tonsillar cancer Other and unspecified hyperlipidemia Essential hypertension Surgical History History of throat surgery Family History Father Hx of CABG Social History Household Members: Spouse Housing: House Do you presently have visiting nurse or other home services: No Alcohol intake: current Alcohol intake frequency: other Alcohol type: beer and wine Patient Tobacco Use Status: Former Tobacco user service: No Current occupational status: employed Review of Systems Const Denies weakness ENT Denies dizziness Card Denies chest pain, Denies chest pain with activity, Denies syncope, Denies rapid heart rate, Denies pedal edema, Denies edema, Denies leg edema, Denies l ightheadedness, Denies palpitations, Denies dyspnea, Denies dyspnea on exertion and Denies orthopnea Resp Denies cough, Denies dyspnea and Denies dyspnea on exertion GI Denies hematochezia and Denies change in stool character Musc Denies abnormal gait, Denies muscle cramps, Denies muscle weakness, Denies numbness, Denies radiating pain into limb and Denies tingling Neuro Denies abnormal gait, Denies dizziness, Denies syncope, Denies numbness, Denies tingling and Denies weakness Endo Denies palpitations Physical Exam Vital Signs: Last Vital Signs Pulse 74 03/22/24 12:42 BP 142/80 H 03/22/24 12:42 BMI result Body Mass Index 26.9 Const General: comfortable and no acute distress Orientation/consciousness: patient oriented x3 HEENT Other: Unremarkable Head: Yes normal to inspection Neck Neck: Yes normal visual inspection Chest Chest palpation & inspection: normal inspection of the chest Resp Auscultation: clear to auscultation bilaterally Cardio Palpation: normal PMI Heart sounds: S1 normal heart sound present, S2 normal heart sound present, no gallops, no murmurs and no rubs GI Palpation (GI): Soft to palpation Back/Spine/Pelvis Other: unremarkable Skin General skin exam: no rashes or lesions noted Neuro General: patient oriented x3 Extrem General: Yes normal to inspection Psych Mental Status: mental status grossly normal Office Procedures EKG Details: EKG with underlying sinus rhythm at 74/Min; no significant ST-T changes and otherwise unremarkable[place] [address]-[id number], Complete Assessment & Plan Assessment & Plan (1) Stroke: Code(s): I63.9 - Cerebral infarction, unspecified Category: Medical Plan: Cardiac studies reviewed again. Transthoracic echocardiogram in the past was unremarkable. Bubble study was -ve and did not show any evidence of intracardiac shunting. BRANDI could not be performed as the probe could not be passed beyond oral cavity. 30 day monitor did not show any atrial fibrillation. We had discussed implantable loop recorder in the past but not performed per patient preference. He is still taking the Eliquis. We discussed about continuing versus stopping this, as there is no definitive evidence of atrial fibrillation. Neurology recommendations also reviewed from 2021. Overall, we agreed that he can just stop the Eliquis and rather use low-dose aspirin. Otherwise, management of blood pressure/lipids through his own PCP. Plan He will contact us with any ongoing concerns. Medications: Discontinued apixaban (Eliquis) Discontinued Reason: Doctor's Order 5 mg PO BID 180 tabs 3RF Coding Level of Care Code Est Pt Level 3 (03529) Diagnoses Stroke I63.9 CPT Codes EKG - CPT: 73264-[id number], Complete ([id number])
[2024-03-22 12:42] VITALS: BP 142/80; PULSE 74
--- OUTSIDE RECORDS SUMMARY | 2024-03-22 13:19 | XMS_ITS | Data Portability ---
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 He's been treated with 6000 cGy of postoperative radiation therapy. He has been treated for lymphedema. Still having issues with lymphedema, TMJ dysfunction and poor appetite Suggest he resume PT for the neck/TMJ. 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 He's been treated with 6000 cGy of postoperative radiation therapy. He has been treated for lymphedema. 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 He's been treated with 6000 cGy of postoperative radiation therapy. He has been treated for lymphedema. Still having issues with lymphedema, TMJ dysfunction and poor appetite No recurrent disease. 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 Referral None recorded. Procedures None recorded. Surgeries None recorded. Imaging CT, neck, w/ contrast 2023 024 [email or web address] [facility] [place], [address] , [facility] [address], [place], [address], 08/13/2023 16:34:32 Medication Orders None recorded. Patient TargetsNo targets recorded. Patient InstructionsNo instructions recorded. Reason for Referral None Reported. Results Created Date Observation Date Name Description Value Unit Range Abnormal Flag Note LastModifiedBy Organization Detail LastModifiedTime 08/06/19 24 08/05/2023 CT, neck, soft tissu e, w/ contr ast No observ ation record ed. MAGALY [facility] [place] [address] [facility] [address], [place], [address], 08/07/2023 15:59:30 10/14/19 24 03/15/2021 imagi ng/di agnos tic resul t No observ ation record ed. [email or web address] Not Available 20:39:11 10/14/19 24 03/17/2023 imagi ng/di agnos tic resul t No observ ation record ed. [email or web address] Not Available 20:39:16 10/14/19 24 03/18/2023 imagi ng/di agnos tic resul t No observ ation record ed. [email or web address] Not Available 20:39:20 10/14/19 24 05/12/2022 imagi ng/di agnos tic resul t No observ ation record ed. [email or web address] Not Available 20:39:36 10/14/19 24 05/12/2022 imagi ng/di agnos tic resul t No observ ation record ed. [email or web address] Not Available 20:39:41 10/14/19 24 05/14/2022 imagi ng/di agnos tic resul t No observ ation record ed. [email or web address] Not Available 20:39:50 10/14/19 24 05/20/2021 imagi ng/di agnos tic resul t No observ ation record ed. [email or web address] Not Available 20:39:53 10/14/19 24 05/20/2021 imagi ng/di agnos tic resul t No observ ation record ed. [email or web address] Not Available 20:39:56 10/14/19 24 05/20/2021 imagi ng/di agnos tic resul t No observ ation record ed. [email or web address] Not Available 20:39:57 10/14/19 24 05/24/2021 imagi ng/di agnos tic resul t No observ ation record ed. [email or web address] Not Available 20:40:11 10/14/19 24 06/11/2020 imagi ng/di agnos tic resul t No observ ation record ed. [email or web address] Not Available 20:40:34 10/14/19 24 06/13/2020 imagi ng/di agnos tic resul t No observ ation record ed. [email or web address] Not Available 20:40:36 10/14/19 24 08/04/2020 imagi ng/di agnos tic resul t No observ ation record ed. [email or web address] Not Available 20:40:49 10/14/19 24 10/14/2021 imagi ng/di agnos tic resul t No observ ation record ed. [email or web address] Not Available 20:41:09 10/14/19 24 11/18/2018 imagi ng/di agnos tic resul t No observ ation record ed. [email or web address] Not Available 20:42:08 10/14/1912/02/2018 imagi ng/di agnos tic resul t No observ ation record ed. [email or web address] Not Available 20:42:36 10/14/19 24 12/14/2018 imagi ng/di agnos tic resul t No observ ation record ed. [email or web address] Not Available 20:42:46 10/14/1912/14/2018 imagi ng/di agnos tic resul t No observ ation record ed. [email or web address] Not Available 20:42:51 10/14/19 24 01/25/2019 imagi ng/di agnos tic resul t No observ ation record ed. [email or web address] Not Available 20:43:30 10/14/19 24 01/30/2021 imagi ng/di agnos tic resul t No observ ation record ed. [email or web address] Not Available 20:43:31 10/14/19 24 02/08/2019 imagi ng/di agnos tic resul t No observ ation record ed. [email or web address] Not Available 20:43:36 10/14/19 24 03/02/2019 audio gram No observ ation record ed. [email or web address] Not Available 20:43:40 10/14/19 24 11/05/2022 audio gram No observ ation record ed. [email or web address] Not Available 20:44:58 10/14/19 24 12/22/2018 audio gram No observ ation record ed. [email or web address] Not Available 20:45:13 10/14/19 24 01/30/2021 audio gram No observ ation record ed. [email or web address] Not Available 20:45:31 10/14/19 24 01/31/2019 audio gram No observ ation record ed. [email or web address] Not Available 20:45:32 10/14/19 24 02/14/2019 audio gram No observ ation record ed. [email or web address] Not Available 20:45:47 03/02/19 25 audio gram No observ ation record ed. [email or web address] Not Available 2024 12:46:58 Result Notes None recorded. 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; Note: Date Diagnosed : 12:48 PM (Z85.00) Not Available [facility] 4 02:32:17 Tinnitus of left ear 17291709108 06 Active 2018 Tinnitus, left ear; Note: Date Diagnosed : 11/18/2018 11:59 AM (H93.12) Not Available [facility] 4 02:32:02 General unsteadin ess 255944150 Active 2018 Unsteadin ess on feet; Note: Date Diagnosed : 11/18/2018 11:59 AM (R26.81) Not Available [facility] 4 02:32:05 Dizziness and giddiness 489164097 Active 2018 Dizziness and giddiness ; Note: Date Diagnosed : 11/18/2018 11:59 AM (R42) Not Available [facility] 4 02:31:55 Lymphedem a 923828543 Active 2021 Secondary lymphedem a; Note: Date Diagnosed : 08/21/2021 9:28 AM (I89.0) Not Available [facility] 4 02:31:54 Mass of neck 385028218 Active 2020 Localized swelling, mass and lump, neck; Note: Date Diagnosed : 1 12:49 PM (R22.1) Not Available [facility] 4 02:32:04 Neck swelling 648995045 Active 2020 Localized swelling, mass and lump, neck; Note: Date Diagnosed : 1 12:49 PM (R22.1) Not Available [facility] 4 02:32:04 Sudden idiopathi c hearing loss 253456436 Active 2018 Sudden idiopathi c hearing loss, left ear; Note: Date Diagnosed : 11/18/2018 11:59 AM (H91.22) Not Available [facility] 4 02:32:12 Acute sialoaden itis 668255150 Active 2022 Acute sialoaden itis; Note: Date Diagnosed : 05/13/2022 1:44 PM (K11.21) Not Available [facility] 4 02:32:05 Sensorine ural hearing loss of bilateral ears 754551317 Active 2018 Sensorine ural hearing loss, bilateral ; Note: Date Diagnosed : 12/30/2018 9:20 AM (H90.3) Not Available [facility] 4 02:31:54 Overlappi ng malignant neoplasm of tonsil 641896064 Active 2020 Malignant neoplasm of overlappi ng sites of tonsil; Note: Date Diagnosed : 06/11/2020 12:18 PM (C09.8) Not Available [facility] 4 02:32:00 Neoplasm of uncertain behavior of pharynx 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 Active 2020 Neoplasm of uncertain behavior of pharynx; Note: Date Diagnosed : 06/07/2020 4:04 PM (D37.05) Not Available [facility] 4 02:31:53 Headache 18619497 Active 2018 Facial pain NOS; Note: Date Diagnosed : 9 3:57 PM (R51) Not Available [facility] 4 02:32:06 Xerostomi a 52651265 Active 2023 HANY CONNORS MD [address] [place] [address], [facility] [place], [address] , [place] - [facility] 16:47:58 Late effect of radiation 14056119 Active 2023 HANY CONNORS MD [facility] [place],[address], [address] , [place] - [facility] 16:48:12 Pharyngea l dysphagia 77583943851 105 Active 2023 Dysphagia , pharyngea l phase; Note: Date Diagnosed : 03/18/2023 9:43 AM (R13.13) Not Available [facility] 02:31:54 Problem Notes None recorded. Procedures Surgical History Date Name Laterality Status Provider Name and Address Organization Details Recorded Time 03/02/19 25 Fiberoptic Laryngoscopy (Comprehensive) completed HANY FALCON MD [address] [facility] [place],[facility] [address] [place] [address], [address], [place] - [facility] 03/02/2024 12:05:23 03/02/19 25 Air & Speech Audio with Tymps (75624, 42803 & 80036) completed Zaki DIAZ 100 [facility],[place] [address], [place], [address], [place] [facility] 03/02/2024 11:43:49 10/16/19 24 Fiberoptic Laryngoscopy (Comprehensive) completed HANY FALCON MD [address] [facility] [place] [address], [place], [address], [place] [facility] 10/16/2023 08:59:31 07/22/19 24 FOL_Reflux_JMS completed HANY FALCON MD [address],[facility] [address] [place] [address], [address], [place] - [facility] 07/22/2023 08:52:09 partial pharyngectomy completed HANY FALCON MD [address],[facility] [address] [place] [address], [address], [place] [facility] 07/20/2023 16:51:05 Imaging Results Imaging Date Name Status LastModified by Organiz ation Details LastModified Time 08/05/2023 CT, neck, soft tissue, w/ contrast completed MAGALY [facility] [place] [address] [place] [address], [place], [address], 08/07/2023 15:59:30 03/15/2021 imaging/diagno stic result completed Information not available 10/14/2023 20:39:11 03/17/2023 imaging/diagno stic result completed Information not available 10/14/2023 20:39:16 03/18/2023 imaging/diagno stic result completed Information not available 10/14/2023 20:39:20 05/12/2022 imaging/diagno stic result completed Information not available 10/14/2023 20:39:36 05/12/2022 imaging/diagno stic result completed Information not available 10/14/2023 20:39:41 05/14/2022 imaging/diagno stic result completed Information not available 10/14/2023 20:39:50 05/20/2021 imaging/diagno stic result completed Information not available 10/14/2023 20:39:53 05/20/2021 imaging/diagno stic result completed Information not available 10/14/2023 20:39:56 05/20/2021 imaging/diagno stic result completed Information not available 10/14/2023 20:39:57 05/24/2021 imaging/diagno stic result completed Information not available 10/14/2023 20:40:11 06/11/2020 imaging/diagno stic result completed Information not available 10/14/2023 20:40:34 06/13/2020 imaging/diagno stic result completed Information not available 10/14/2023 20:40:36 08/04/2020 imaging/diagno stic result completed Information not available 10/14/2023 20:40:49 10/14/2021 imaging/diagno stic result completed Information not available 10/14/2023 20:41:09 11/18/2018 imaging/diagno stic result completed Information not available 10/14/2023 20:42:08 12/02/2018 imaging/diagno stic result completed Information not available 10/14/2023 20:42:36 12/14/2018 imaging/diagno stic result completed Information not available 10/14/2023 20:42:46 12/14/2018 imaging/diagno stic result completed Information not available 10/14/2023 20:42:51 01/25/2019 imaging/diagno stic result completed Information not available 10/14/2023 20:43:30 01/30/2021 imaging/diagno stic result completed Information not available 10/14/2023 20:43:31 02/08/2019 imaging/diagno stic result completed Information not available 10/14/2023 20:43:36 03/02/2019 audiogram completed Information not available 10/14/2023 20:43:40 11/05/2022 audiogram completed Information not available 10/14/2023 20:44:58 12/22/2018 audiogram completed Information not available 10/14/2023 20:45:13 01/30/2021 audiogram completed Information not available 10/14/2023 20:45:31 01/31/2019 audiogram completed Information not available 10/14/2023 20:45:32 02/14/2019 audiogram completed Information not available 10/14/2023 20:45:47 03/02/2024 audiogram completed BARCODE Information no t available 03/02/2024 12:46:58 Procedure Notes None recorded. Medical Equipment None Reported. Medications Name Sig Start Date Stop Date Status Note LastModified by Organization Details LastModified Time atorvasta tin 40 mg tablet TAKE 1 TABLET BY MOUTH EVERY DAY active Not Available Not Available No t Available prednison e 10 mg tablet 2018 active Medicati on ID: [id number] D uration Value: 14 Prescri bed By Name: Toney kennedy MD Brand Name: predniso ne Send Method: E-Prescr ibed Sub s Allowed: subs OK Speci al Instruct ion: Take 6 tabs daily for 7 days then 3 tabs daily for 3 days then 2 tabs daily for 2 days and 1 tab daily for 2 days then stop Med icationG enericNa me: predniso ne Not Available Not Available Not Available gabapenti n 600 mg tablet active Medicati on ID: [id number] B rand Name: gabapent in Send Method: E-Prescr ibed Sub s Allowed: subs OK Medic ationGen ericName : gabapent in Not Available Not Available Not Available enalapril maleate 10 mg tablet active Medicati on ID: [id number] B rand Name: enalapri l maleate Send Method: E-Prescr ibed Sub s Allowed: subs OK Medic ationGen ericName : enalapri l maleate Not Available Not Available Not Available enalapril maleate 20 mg tablet 04/18 completed Medicati on ID: [id number] D uration Value: 90 Brand Name: enalapri l maleate Send Method: E-Prescr ibed Sub s Allowed: subs OK Medic ationGen ericName : enalapri l maleate Not Available Not Available Not Available tamsulosi n 0.4 mg capsule TAKE 1 CAPSULE BY MOUTH EVERY DAY IN THE EVENING active Not Available Not Available No t Available lisinopri l 10 mg tablet 20 MG IN AM AND 10 MG AT NIGHT active Not Available Not Available No t Available omeprazol e 20 mg capsule,d elayed release TAKE 1 CAPSULE BY MOUTH EVERY DAY active Not Available Not Available No t Available fluticaso ne propionat e 50 mcg/actua tion nasal spray,ash[employer] pension 2018 active Medicati on ID: [id number] D uration Value: 30 Brand Name: fluticas one propiona te Send Method: E-Prescr ibed Sub s Allowed: subs OK Speci al Instruct ion: SPRAY 2 SPRAYS INTO EACH NOSTRIL EVERY DAY Medi cationGe nericNam e: fluticas one propiona te Not Available Not Available Not Available finasteri de 5 mg tablet TAKE 1 TABLET BY MOUTH EVERY DAY active Not Available Not Available No t Available amoxicill in 875 mg-potass ium clavulana te 125 mg tablet by mouth 2022 active Medicati on ID: [id number] D uration Value: 10 Brand Name: Augmenti n Send Method: E-Prescr ibed Sub s Allowed: subs OK Speci al Instruct ion: 1 po bid for 10 days Med icationG enericNa me: Augmenti n Not Available Not Available Not Available escitalop eliud 10 mg tablet TAKE 1 TABLET BY MOUTH EVERY DAY active Not Available Not Available No t Available escitalop eliud 20 mg tablet TAKE 1 TABLET BY MOUTH EVERY DAY active Not Available Not Available No t Available escitalop eliud 5 mg tablet active Medicati on ID: [id number] B rand Name: escitalo pram oxalate Send Method: E-Prescr ibed Sub s Allowed: subs OK Medic ationGen ericName : escitalo pram oxalate Not Available Not Available Not Available Eliquis 5 mg tablet active Not Available Not Available No t Available Vitals Date Recorded Body height Body mass index (BMI) Body weight Provider Name and Address Organization Details Last Updated DateTime 10/16/2023 167.64 cm 26.5 kg/m2 55472.15 g Edgardo Decker [facility] 10/16/2023 08:41:36 Date Recorded Body height Body mass index (BMI) Body weight Provider Name and Address Organization Details Last Updated DateTime 07/22/2023 167.64 cm 26.5 kg/m2 86683.15 g Edgardo Decker [facility] 07/22/2023 08:42:51 Social History None recorded. Functional Status None recorded. Mental Status None recorded. Family History Nothing Reported. 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 7 Sensorineu ral hearing loss of bilateral ears 616626214 H90.3 Late effec t of radiation 03284221 T66.XXXS [id number] HANY CONNORS MD [facility] [address] [address] 03/02/2024 10:48:15 03/02/2024 12:08:33 Sensorineural hearing loss of bilateral ears 286392412 H90.3 Audiologic al evaluation results:Ri ght ear:Normal hearing from 250 through {{955 647 9204 1500 2000* 3000 4000 6000 8000}} Hz {{sloping to a mild slopi ng to a moderate s loping to moderately severe slo ping to severe* sl oping to profound f lat high frequency low frequency mid frequency cookie bite lane curve}} {{with sen sorineural hearing loss with* cond uctive hearing loss with mixed hearing loss with}} {{excellen t* good fa ir poor no measurable }} word recognitio n.Left ear:Modera tely severe hearing loss from 250 through {{245 713 0015 1500 2000 3000 4000* 6000 8000}} Hz {{sloping to a mild slopi ng to a moderate s loping to moderately severe slo ping to severe slo ping to profound* flat high frequency low frequency mid frequency cookie bite lane curve}} {{with sen sorineural hearing loss with* cond uctive hearing loss with mixed hearing loss with}} {{excellen t good angeline r poor* no measurable }} word recognitio n. Tympanomet ry:Right Ear:{{Type A* Type As Type Ad Type C Type C, shallow & rounded Ty pe B Type B with large volume Cou ld not maintain a hermetic seal}}Left Ear:{{Type A* Type As Type Ad Type C Type C, shallow & rounded Ty pe B Type B with large volume Cou ld not maintain a hermetic seal}} History of malignant neoplasm of oropharynx 7178732236 3454803 Z85.818 Xerostomia 34857505 K11. 7 Late effec t of radiation 10636040 T66.XXXS Health Concerns Section Related Observation LastModified by Organization Detai ls LastModified Time None Recorded Concern Status LastModified by Organization Details LastModified Time None Recorded Advance Directives Directive None Recorded Payers Encounter Date Sequence Insurance Name Policy Number Policy Mares Covered Member ID Mares Member ID Guarantor Name 07/22/2023 1 [facility] - MEDICARE PREFERRED (MEDICARE REPLACEMENT HMO) NIXON Odell [id number] 1 Howie Odell 10/16/2023 1 [facility] - MEDICARE PREFERRED (MEDICARE REPLACEMENT HMO) NIXON Odell [id number] 1 Howie Odell 03/02/2024 1 [facility] - MEDICARE PREFERRED (MEDICARE REPLACEMENT HMO) NIXON Odell [id number] Howie Odell Notes Date Note Type Note Provider Name and Address Organization Details Recorded Time 07/22/2023 text/html Sx basically the same with tightness in neck and TMJ region. Saw dentist that suggested cold laser or chiropractor. No recent lymphedema therapy. Poor appetite--stressed with work and cancer dx.Having allergy sx now. HANY FALCON MD [address] [place] [address], [address], [place] - [facility] 07/22/2023 08:57:07 10/16/2023 text/html Continues to fee l miserable everyday along his jaw and gumsCT no massesSelf lymphedema therapy...[facility] [facility] [place]reduced visits to once per yearNED but patient still just doesn't feel Alcohol 1 wine every couple of days. Denies binge drinkingRegular diet past hxHistory of stage IV ([id number]) P16 neg, squamous cell carcinoma left tonsillar fossa status post robotic resection and left neck dissection July 2020 by. He's been treated with 6000 cGy of postoperative radiation therapy. 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 He's been treated with 6000 cGy of postoperative radiation therapy. He has been treated for lymphedema.Still having issues with lymphedema, TMJ dysfunction and poor appetite Still concerned about slow eating Hx of CVA--left arm numbnessWent once only for acupuncture No new sxHx of left sudden HL with neg MRI in 2019 HANY FALCON MD 100 [facility] [address], [place], [address], [place] [facility] 03/02/2024 12:07:24
--- OUTSIDE RECORDS SUMMARY | 2024-03-22 13:19 | XMS_ITS | Continuity of Care Document ---
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 Surgeries None recorded. Imaging None recorded. Medication Orders None recorded. Patient TargetsNo targets recorded. Patient InstructionsNo instructions recorded. Reason for Referral None Reported. Results Created Date Observation Date Name Description Value Unit Range Abnormal Flag Note LastModifiedBy Organization Detail LastModifiedTime 03/02/19 25 audio gram No observ ation record ed. BARCODE Not Available 2024 12:46:58 Result Notes None recorded. Problems Name Problem SNOMED Code Status Onset Date Resolution Date Notes Provider Name and Address Organization Details Recorded Time Chronic sialadeni tis 439123250 Active 2022 Chronic sialoaden itis; Note: Date Diagnosed : 06/26/2022 1:43 PM (K11.23) Not Available [facility] 4 02:32:18 History of malignant neoplasm of digestive organ 54393302973 903310 Active 2020 Personal history of malignant neoplasm of unspecifi ed digestive organ; Note: Date Diagnosed : 12:48 PM (Z85.00) Not Available [facility] 4 02:32:17 Tinnitus of left ear 59923312412 06 Active 2018 Tinnitus, left ear; Note: Date Diagnosed : 11/18/2018 11:59 AM (H93.12) Not Available [facility] 4 02:32:02 General unsteadin ess 539981100 Active 2018 Unsteadin ess on feet; Note: Date Diagnosed : 11/18/2018 11:59 AM (R26.81) Not Available [facility] 4 02:32:05 Dizziness and giddiness 412796725 Active 2018 Dizziness and giddiness ; Note: Date Diagnosed : 11/18/2018 11:59 AM (R42) Not Available [facility] 4 02:31:55 Lymphedem a 036122715 Active 2021 Secondary lymphedem a; Note: Date Diagnosed : 08/21/2021 9:28 AM (I89.0) Not Available [facility] 4 02:31:54 Mass of neck 084772622 Active 2020 Localized swelling, mass and lump, neck; Note: Date Diagnosed : 12:49 PM (R22.1) Not Available [facility] 4 02:32:04 Neck swelling 388714162 Active 2020 Localized swelling, mass and lump, neck; Note: Date Diagnosed : 12:49 PM (R22.1) Not Available [facility] 4 02:32:04 Sudden idiopathi c hearing loss 260540182 Active 2018 Sudden idiopathi c hearing loss, left ear; Note: Date Diagnosed : 11/18/2018 11:59 AM (H91.22) Not Available [facility] 4 02:32:12 Acute sialoaden itis 858294487 Active 2022 Acute sialoaden itis; Note: Date Diagnosed : 05/13/2022 1:44 PM (K11.21) Not Available [facility] 4 02:32:05 Sensorine ural hearing loss of bilateral ears 558411103 Active 2018 Sensorine ural hearing loss, bilateral ; Note: Date Diagnosed : 12/30/2018 9:20 AM (H90.3) Not Available [facility] 4 02:31:54 Overlappi ng malignant neoplasm of tonsil 982512965 Active 2020 Malignant neoplasm of overlappi ng sites of tonsil; Note: Date Diagnosed : 06/11/2020 12:18 PM (C09.8) Not Available [facility] 4 02:32:00 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; Note: Date Diagnosed : 06/07/2020 4:04 PM (D37.05) Not Available [facility] 4 02:31:53 Headache 13057976 Active 2018 Facial pain NOS; Note: Date Diagnosed : 9 3:57 PM (R51) Not Available [facility] 4 02:32:06 Xerostomi a 70076626 Active 2023 HANY CONNORS MD [address] [place], [place] [address], [address] , [facility] [place] 4 16:47:58 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 Procedures Surgical History Date Name Laterality Status Provider Name and Address Organization Details Recorded Time 03/02/19 25 Fiberoptic Laryngoscopy (Comprehensive) completed HANY FALCON MD [address] [facility] [address] [place] [address], [phone], [facility] 03/02/2024 12:05:23 03/02/19 25 Air & Speech Audio with Tymps (36432, 68035 & 44532) completed Zaki DIAZ [address] [facility],[address], [address], [facility] 03/02/2024 11:43:49 10/16/19 24 Fiberoptic Laryngoscopy (Comprehensive) completed HANY FALCON MD [address] [facility],[address], [address], [facility] 10/16/2023 08:59:31 07/22/19 24 FOL_Reflux_JMS completed HANY FALCON MD [address] [facility],[address], [address], [facility] 07/22/2023 08:52:09 partial pharyngectomy completed HANY FALCON MD [address] [facility],[address], [address], [facility] 07/20/2023 16:51:05 Imaging Results None recorded. Procedure Notes None recorded. Medical Equipment None Reported. Medications Name Sig Start Date Stop Date Status Note LastModified by Organization Details LastModified Time atorvasta tin 40 mg tablet TAKE 1 TABLET BY MOUTH EVERY DAY active Not Available Not Available No t Available prednison e 10 mg tablet 2018 active Medicati on ID: [id number] D uration Value: 14 Prescri bed By [...] 600 mg tablet active Medicati on ID: [id number] B rand Name: gabapent in Send Method: E-Prescr ibed Sub s Allowed: subs OK Medic ationGen ericName : gabapent in Not Available Not Available Not Available enalapril maleate 10 mg tablet active Medicati on ID: [id number] B rand Name: enalapri l maleate Send Method: E-Prescr ibed Sub s Allowed: subs OK Medic ationGen ericName : enalapri l maleate Not Available Not Available Not Available enalapril maleate 20 mg tablet 04/18 completed Medicati on ID: [id number] D uration Value: 90 Brand Name: enalapri [...] spray,ashleigh pension 2018 active Medicati on ID: [id number] D uration Value: 30 Brand Name: fluticas [...] by mouth 2022 active Medicati on ID: [id number] D uration Value: 10 Brand Name: Augmenti [...] 5 mg tablet active Medicati on ID: [id number] B rand Name: randell vacam oxalate Send Method: E-Prescr ibed Sub s Allowed: subs OK Medic ationGen ericName : escitalo pram oxalate Not Available Not Available Not Available Eliquis 5 mg tablet active Not Available Not Available No t Available Vitals None Recorded Social History None recorded. Functional Status None recorded. Mental Status None recorded. Family History Nothing Reported. Medical History Condition Response Hearing Loss Y Anxiety Y High Cholesterol Y Cancer Y Stroke Y Hypertension Y Past Encounters Encounter ID Performer Location Encounter Start Date Encounter Closed Date Diagnosis/Indication Diagnosis SNOMED-CT Code Diagnosis ICD10 Code Diagnosis Note [id number] HANY CONNORS MD [facility] [address] [address] 03/02/2024 10:48:15 03/02/2024 12:08:33 Sensorineural hearing loss of bilateral ears 346239093 H90.3 Audiologic al evaluation results:Ri ght ear:Normal hearing from 250 through {{819 011 7376 1500 2000* 3000 4000 6000 8000}} Hz [...] tely severe hearing loss from 250 through {{764 277 7145 1500 2000 3000 4000* 6000 8000}} Hz [...] seal}} History of malignant neoplasm of oropharynx 4227430669 6724082 Z85.818 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 7 Late effec t of radiation 06556792 T66.XXXS Health Concerns Section Related Observation LastModified by Organization Detai ls LastModified Time None Recorded Concern Status LastModified by Organization Details LastModified Time None Recorded Payers Encounter Date Sequence Insurance Name Policy Number Policy Mares Covered Member ID Mares Member ID Guarantor Name 03/02/2024 1 [facility] - MEDICARE PREFERRED (MEDICARE REPLACEMENT HMO) NIXON Odell [id number] 1 Howie Odell Notes Date Note Type Note Provider Name and Address Organization Details Recorded Time 03/02/2024 text/html History of stage IV ([id number]) P16 neg, squamous cell carcinoma left tonsillar [...] neg MRI in 2019 HANY FALCON MD [address] [place] [address], [address], [place] [facility] 03/02/2024 12:07:24
== END 2024-03-22 12:56 | disposition home or self-care (01) ==
PROVIDERS: PCP Internal Medicine; Visit Provider Internal Medicine
DX: I63.9 Cerebral infarction, unspecified (principal)
CPT/HCPCS: 93010; 99213

== ENCOUNTER → 2024-03-22 12:23 | Outpatient (BNVA) | payer OTHER, SELFPAY | PROVIDERS: PCP Internal Medicine; Visit Provider Internal Medicine | DX: Z86.73 Personal history of transient ischemic attack (TIA), and cerebral infarction without residual deficits (principal) | CPT/HCPCS: 93005 ==